=== PATIENT | male | born 1990 | race Caucasian/White ===

== ENCOUNTER 2019-07-25 05:23 | Inpatient (IN) | payer OTHER ==
--- NOTE | 2019-07-25 05:42 | PDOC ---
History of Present Illness - General Chief Complaint: Cold Symptoms Stated Complaint: FEVER Time Seen by Provider: 07/25/19 05:40 History Source: Patient - History of Present Illness Initial Comments: 07/25/19 06:42 28-year-old male complaining of fever for the last 4 days, today noted to have a rash to body. Patient reports that he traveled from [place] recently. with sneezing cold symptoms and no fever. Denies nausea, vomiting , abdominal pain, throat pain, neck pain nasal congestion, cough, chest pain, urinary symptoms. Patient reports slight frontal headache No past medical history Past History - Past Medical History Allergies/Adverse Reactions: Allergies Allergy/AdvReac Type Severity Reaction Status Date / Time No Known Allergies Allergy Verified 07/20/12 06:46 Home Medications: Ambulatory Orders Amox-Tr/K Cl [Augmentin 875Mg Tablet] 1 tab PO BID #20 tablet 07/20/12 No Home Medications 0 dose .ROUTE UTDICT 07/20/12 - Psycho Social/Smoking Cessation Hx Smoking Status: No Smoking History: Never smoked Number of Cigarettes Smoked Daily: 0 Review of Systems - Review of Systems Able to Perform ROS?: Yes Is the patient limited Frisian proficient: No Constitutional: Yes: Fever HEENTM: No: Symptoms Reported, See HPI, Eye Pain, Blurred Vision, Tearing, Recent change in vision, Double Vision, Cataracts, Ear Pain, Ocular Prothesis, Ear Discharge, Nose Pain, Nose Congestion, Tinnitus, Nose Bleeding, Hearing Loss , Throat Pain, Throat Swelling, Mouth Pain, Dental Problems, Difficulty Swallowing, Mouth Swelling, Other Respiratory: No: Symptoms reported, See HPI, Cough, Orthopnea, Shortness of Breath, SOB with Exertion, SOB at Rest, Stridor, Wheezing, Productive cough, Hemoptysis, Other Cardiac (ROS): No: Symptoms Reported, See HPI, Chest Pain, Edema, Irregular Heart Rate, Lightheadedness, Palpitations, Syncope, Chest Tightness, Other ABD/GI: No: Symptoms Reported, See HPI, Abdominal Distended, Abd. Pain w/ defecation, Blood Streaked Bowels, Constipated, Diarrhea, Difficulty Swallowing , Nausea, Poor Appetite, Poor Fluid Intake, Rectal Bleeding, Vomiting, Indigestion, Abdominal cramping, Tarry Stools, Other *Physical Exam - Vital Signs 07/25/19 06:50 Last Vital Signs Temp Pulse Resp BP Pulse Ox 101.2 F H 95 H 19 120/72 96 07/25/19 05:30 07/25/19 05:30 07/25/19 05:30 07/25/19 05:30 07/25/19 05:30 - Physical Exam General Appearance: Yes: Appropriately Dressed HEENT: positive: Pharyngeal Erythema (mild erthema no exudate no swelling) Neck: negative: Lymphadenopathy (R), Lymphadenopathy (L) Respiratory/Chest: positive: Lungs Clear, Normal Breath Sounds. negative: Chest Tender Cardiovascular: positive: Tachycardia Gastrointestinal/Abdominal: positive: Normal Bowel Sounds, Soft. negative: Tender Musculoskeletal: positive: Normal Inspection Extremity: positive: Normal Capillary Refill, Normal Inspection, Normal Range of Motion Integumentary: positive: Normal Color, Dry, Warm, Other (maculopapular rash to body nonpruritic) Neurologic: positive: pastry artist II-XII NML intact, Fully Oriented, Alert, Normal Mood/ Affect, Normal Response ED Treatment Course - LABORATORY CBC & Chemistry Diagram: 07/27/19 06:20 07/27/19 06:20 ED Progress Note - Progress Note Progress Note: 07/25/19 06:51 A: fever r/o sepsis P: labs ches xray influenza strep Medical Decision Making - Medical Decision Making patient signed out to nathaly steiner Discharge - Discharge Information Problems reviewed: Yes Clinical Impression/Diagnosis: Neutropenic fever, Thrombocytopenia, Transaminitis Condition: Fair - Admission Yes - Follow up/Referral - Patient Discharge Instructions - Post Discharge Activity
--- NOTE | 2019-07-25 05:45 | PDOC ---
ED Treatment Course - LABORATORY CBC & Chemistry Diagram: 07/25/19 19:00 07/25/19 06:57 Medical Decision Making - Medical Decision Making 07/25/19 05:45 Patient seen by the advanced practice provider under my direct supervision. Ancillary testing reviewed as necessary. I agree with plan as outlined by the advanced practice provider. Discharge - Discharge Information Problems reviewed: Yes Clinical Impression/Diagnosis: Neutropenic fever, Thrombocytopenia, Transaminitis Condition: Fair Disposition: HOME - Follow up/Referral - Patient Discharge Instructions - Post Discharge Activity
[2019-07-25 05:52] VITALS: BMI 28.1
[2019-07-25] MEDS ORDERED: SODIUM CHLORIDE 3,062 ML IV ONE (06:03)
[2019-07-25] MEDS ORDERED: ACETAMINOPHEN 1000 MG/100 ML VIAL (NON FORMULARY) IVPB ONE ×2 (06:38→08:46)
[2019-07-25] MEDS ORDERED: ACETAMINOPHEN INJECTION 100 ML IVPB ONE (07:13)
--- NOTE | 2019-07-25 07:15 | PDOC ---
*Physical Exam - Vital Signs Last Vital Signs Temp Pulse Resp BP Pulse Ox 99.6 F 80 20 115/68 96 07/25/19 07:56 07/25/19 07:56 07/25/19 07:56 07/25/19 07:56 07/25/19 07:56 <JunoAdan - Last Filed: 07/25/19 10:35> - Vital Signs Last Vital Signs Temp Pulse Resp BP Pulse Ox 101.2 F H 95 H 19 120/72 96 07/25/19 05:30 07/25/19 05:30 07/25/19 05:30 07/25/19 05:30 07/25/19 05:30 - Physical Exam General Appearance: Yes: Nourished, Appropriately Dressed. No: Apparent Distress Respiratory/Chest: positive: Lungs Clear, Normal Breath Sounds. negative: Respiratory Distress, Accessory Muscle Use, Rales, Rhonchi, Stridor, Wheezing Cardiovascular: positive: Regular Rhythm, Regular Rate, S1, S2 (present). negative: Murmur Integumentary: positive: Dry, Warm, Rash (Maculopapular rash to neck, trunk, arms and legs.) Neurologic: positive: Fully Oriented, Alert, Normal Mood/Affect, Normal Response , Motor Strength 5/5 <Chel Warner - Last Filed: 07/25/19 16:54> ED Treatment Course - LABORATORY CBC & Chemistry Diagram: 07/25/19 06:57 07/25/19 06:57 - ADDITIONAL ORDERS Additional order review: Laboratory Results 07/25/19 07/25/19 07/25/19 06:57 06:57 06:57 PT with INR INR PTT (Actin FS) VBG pH 7.40 POC VBG pCO2 46.1 POC VBG pO2 < 49 H VBG HCO3 27.9 VBG O2 Sat (Margarito) 63.0 L VBG Base Excess 2.9 H Sodium 136 Potassium 3.9 Chloride 100 Carbon Dioxide 28 Anion Gap 7 L BUN 9.1 Creatinine 0.9 Est GFR (CKD-EPI)AfAm 134.24 Est GFR (CKD-EPI)NonAf 115.82 Random Glucose 90 Lactic Acid 1.2 Calcium 8.3 L Total Bilirubin 0.4 AST 117 H ALT 125 H Alkaline Phosphatase 42 L Troponin I Total Protein 6.9 Albumin 3.7 07/25/19 07/25/19 06:57 06:57 PT with INR 13.40 H INR 1.13 H PTT (Actin FS) 39.7 H VBG pH POC VBG pCO2 POC VBG pO2 VBG HCO3 VBG O2 Sat (Margarito) VBG Base Excess Sodium Potassium Chloride Carbon Dioxide Anion Gap BUN Creatinine Est GFR (CKD-EPI)AfAm Est GFR (CKD-EPI)NonAf Random Glucose Lactic Acid Calcium Total Bilirubin AST ALT Alkaline Phosphatase Troponin I < 0.02 Total Protein Albumin 07/25/19 06:57 RBC 5.20 MCV 88.0 MCHC 33.8 RDW 13.6 MPV 9.1 Neutrophils % 47.6 D Lymphocytes % 36.1 D Monocytes % 12.3 H Eosinophils % 3.5 D Basophils % 0.5 - Medications Given in the ED: ED Medications Discontinued Medications Generic Name Dose Route Start Last Admin Trade Name Freq PRN Reason Stop Dose Admin Acetaminophen 1,000 mg 07/25/19 06:38 07/25/19 07:16 Ofirmev Injection - IVPB 07/25/19 06:39 1,000 mg ONCE ONE Administration Acetaminophen 1,000 mg 07/25/19 08:46 07/25/19 09:08 Ofirmev Injection - IVPB 07/25/19 08:47 Not Given ONCE ONE Sodium Chloride 3,062 mls @ 1,531 mls/hr 07/25/19 06:03 07/25/19 07:11 Normal Saline - 30 ml/kg infuse over 2 hr (3062 ml) 07/25/19 08:02 1,531 mls/hr IV Administration ONCE ONE Cefepime HCl 1 gm in 50 mls @ 100 mls/hr 07/25/19 08:18 07/25/19 08:40 Maxipime 1 Gm Premix Ivpb IVPB 07/25/19 08:47 100 mls/hr ONCE ONE Administration Vancomycin HCl 1,000 mg 07/25/19 08:18 07/25/19 09:15 Vancomycin (Pre-Docked) IVPB 07/25/19 08:19 1,000 mg ONCE ONE Administration Protocol <Adan Fraire - Last Filed: 07/25/19 10:35> - LABORATORY CBC & Chemistry Diagram: 07/25/19 13:48 07/25/19 06:57 <Chel Warner - Last Filed: 07/25/19 16:54> Medical Decision Making - Medical Decision Making 07/25/19 08:45 Pt presents for 5 day of fever s/p travel to [place] last week with his . Fever started 4 days ago, rash started yesterday. Pt with leukopenia to 0.9 WBC count and thrombocytopenic to 56. Given rash and fever with associated headache will perform LP to rule out meningitis DDx: meningitis, new HIV infection, Dengue fever, [place], leukemia Broad-spectrum antibiotics ordered Plan to admit; will go to hospitalist group. No PCP. 07/25/19 11:[address] Mayes placed Pending results of LP 07/25/19 12:[address] Mayes. HIV negative Pt with hypotension at 80 systolic 1L of LR running now 07/25/19 12:[address] Bragg; admit to Dr. Bangura med/surg Will repeat pressure. If still low will consider ICU <Chel Warner - Last Filed: 07/25/19 16:54> Discharge <Adan Fraire - Last Filed: 07/25/19 10:35> - Discharge Information Problems reviewed: Yes - Admission Yes <Chel Warner - Last Filed: 07/25/19 16:54> - Discharge Information Clinical Impression/Diagnosis: Neutropenic fever, Thrombocytopenia, Transaminitis Condition: Fair Disposition: HOME Procedures - Lumbar Puncture Indication: Meningitis, Fever CT Scan: Yes Betadine Prep: Yes Position: Right lateral decubitus Site: L3-L4 Local Anesthesia: 1% Lidocaine with epi Volume(ml): 2 Lumbar Puncture Kit: Adult Needle Size(gauge): 23 Opening Pressure(mmHg): 25 Traumatic Tap: No Tubes Obtained: 4 Clear Fluid: Yes Complications: No Progress: 07/25/19 10:37 patient placed in right lateral decub position L3-L4 site marked patient prepped under sterile conditions beta-dine prep approx 2cc local anesthetic used spinal catheter introduced; opening pressure of 25 measured; 4 tubes of clear csf obtained approx 3mL each spinal catheter removed, covered, and dressed patient tolerated procedure well with no immediate post-procedure complaints. <Adan Fraire - Last Filed: 07/25/19 10:35>
[2019-07-25 07:34] LABS: VENOUS PC02 46.1 mmHg (38-52)
[2019-07-25 07:44] LABS: VENOUS PO2 < 49 mmHg (28-48)
[2019-07-25 07:59] LABS: INR 1.13 (0.83-1.09); PROTHROMBIN TIME (PATIENT) 13.4 SEC (9.7-13.0)
[2019-07-25 08:02] LABS: ACTIVATED PTT 39.7 SECONDS (25.2-36.5)
[2019-07-25 08:03] LABS: ALBUMIN 3.7 g/dl (3.4-5.0); BILIRUBIN,TOTAL 0.4 mg/dL (0.2-1); BLOOD UREA NITROGEN 9.1 mg/dL (7-18); CALCIUM 8.3 mg/dL (8.5-10.1); CREATININE 0.9 mg/dL (0.55-1.3); POTASSIUM 3.9 mmol/L (3.5-5.1); TOT PROT 6.9 g/dl (6.4-8.2)
[2019-07-25 08:10] LABS: BASO % 0.5 % (0-2.0); EOS % 3.5 % (0-4.5); HEMATOCRIT 45.8 % (35.4-49); HEMOGLOBIN 15.5 GM/dL (11.7-16.9); LYMPH % 36.1 % (8-40); MCH 29.8 pg (25.7-33.7); MCHC 33.8 g/dl (32.0-35.9); MEAN PLT VOLUME 9.1 fl (7.5-11.1); MONO % 12.3 % (3.8-10.2); NEUT % 47.6 % (42.8-82.8); PLATELET COUNT 56 K/MM3 (134-434); RDW 13.6 % (11.9-15.9)
[2019-07-25 08:17] LABS: WHITE BLOOD COUNT 0.9 K/mm3 (4.0-10.0)
[2019-07-25] MEDS ORDERED: VANCOMYCIN 1 GM in D5W (PRE-DOCKED) 1,000 MG/250 ML IVPB ONE (08:18)
[2019-07-25] MEDS ORDERED: CEFEPIME HCL/D5W 1 GM/50 ML BAG IVPB ONE (08:18)
[2019-07-25] MEDS ORDERED: CEFEPIME 1 GM/100 ML BAG IVPB ONE (08:26)
[2019-07-25] MEDS ORDERED: VANCOMYCIN 1 GRAM (PRE-DOCKED) 1,000 MG/250 ML BAG IVPB ONE (09:09)
--- NOTE | 2019-07-25 10:14 | EKG ---
Test Reason : Blood Pressure : / mmHG Vent. Rate : 082 BPM Atrial Rate : 082 BPM P-R Int : 160 ms QRS Dur : 096 ms QT Int : 380 ms P-R-T Axes : 072 005 039 degrees QTc Int : 443 ms NORMAL SINUS RHYTHM NORMAL ECG NO PREVIOUS ECGS AVAILABLE Confirmed by Marv Ruiz MD ([id number]) on 07/25/2019 10:14:23 AM Referred By: Confirmed By:Marv Ruiz MD
[2019-07-25 10:25] LABS: ANISOCYTOSIS 0; MACROCYTOSIS 0; PLATELET ESTIMATE DECREASED
[2019-07-25 10:41] LABS: EPI CELLS 1.8 /HPF (0-5/HPF); HYALINE CASTS 6 /lpf (0-8); URINE APPEARANCE CLEAR; URINE BACTERIA 1.7 /hpf (NEGATIVE); URINE BILIRUBIN NEGATIVE (NEGATIVE); URINE COLOR YELLOW; URINE GLUCOSE (UA) NEGATIVE (NEGATIVE); URINE KETONE 1+ (NEGATIVE); URINE LEUK ESTERASE NEGATIVE (NEGATIVE); URINE NITRITE NEGATIVE (NEGATIVE); URINE PROTEIN 1+ (NEGATIVE); URINE RBC 0 /hpf (0-4); URINE WBC 1 /hpf (0-5)
[2019-07-25] MEDS ORDERED: LACTATED RINGERS SOLUTION 1,000 ML/1,000 ML INFUS.BAG IV ONE (11:51)
[2019-07-25 12:24] LABS: CSF APPEARANCE CLEAR; CSF COLOR COLORLESS; CSF WBC 2
--- NOTE | 2019-07-25 13:01 | PN ---
Teaching Attending Note Name of Resident: Gerber Bragg ATTENDING PHYSICIAN STATEMENT I saw and evaluated the patient. I reviewed the resident's note and discussed the case with the resident. I agree with the resident's findings and plan as documented. SUBJECTIVE: Patient is a 28 year old male with no significant PMHx presents with fever and malaise that has been going on for 4 days, Patient was in for a week prior coming to the hospital. Came to the Hospital since was having fever all day long but Tylenol was helping. He admits recent travel to [place] ( 07/13- 07/20) where he swam in beach, ate raw shrimp, and admits to mosquito bites. He denies chest pain, palpitations, abdominal pain, vomiting, diarrhea, melena, hematochezia, hematemesis, any fall, trauma or loss of consciousness. Vital Signs Temperature 99.6 F 07/25/19 07:56 Pulse Rate 80 07/25/19 07:56 Respiratory Rate 20 07/25/19 07:56 Blood Pressure 115/68 07/25/19 07:56 O2 Sat by Pulse Oximetry (%) 96 07/25/19 07:56 GENERAL: The patient is awake, alert, and fully oriented, feels warm. HEAD: Normal with no signs of trauma. EYES: PERRL, extraocular movements intact, conjunctiva mildly icteric, ENT: Ears normal, oropharynx clear without exudates, moist mucous membranes. NECK: Trachea midline, full range of motion, supple. LUNGS: Breath sounds equal, clear to auscultation bilaterally, no wheezes, no crackles, no accessory muscle use. HEART: Regular rate and rhythm, S1, S2 without murmur, rub or gallop. ABDOMEN: Soft, nontender, nondistended, normoactive bowel sounds, no guarding, no rebound, no hepatosplenomegaly, no masses. EXTREMITIES: 2+ pulses, warm, well-perfused, no edema. multiple mosquito bites NEUROLOGICAL: Cranial nerves II through XII grossly intact. Normal speech, gait not observed. PSYCH: Normal mood, normal affect. SKIN: Warm, dry, normal turgor, no rashes or lesions noted CBCD WBC 0.9 K/mm3 (4.0-10.0) L* 07/25/19 06:57 RBC 5.20 M/mm3 (4.00-5.60) 07/25/19 06:57 Hgb 15.5 GM/dL (11.7-16.9) 07/25/19 06:57 Hct 45.8 % (35.4-49) 07/25/19 06:57 MCV 88.0 fl (80-96) 07/25/19 06:57 MCHC 33.8 g/dl (32.0-35.9) 07/25/19 06:57 RDW 13.6 % (11.9-15.9) 07/25/19 06:57 Plt Count 56 K/MM3 (134-434) L D 07/25/19 06:57 MPV 9.1 fl (7.5-11.1) 07/25/19 06:57 CMP Sodium 136 mmol/L (136-145) 07/25/19 06:57 Potassium 3.9 mmol/L (3.5-5.1) 07/25/19 06:57 Chloride 100 mmol/L (98-107) 07/25/19 06:57 Carbon Dioxide 28 mmol/L (21-32) 07/25/19 06:57 Anion Gap 7 MMOL/L (8-16) L 07/25/19 06:57 BUN 9.1 mg/dL (7-18) 07/25/19 06:57 Creatinine 0.9 mg/dL (0.55-1.3) 07/25/19 06:57 Random Glucose 90 mg/dL (74-106) 07/25/19 06:57 Calcium 8.3 mg/dL (8.5-10.1) L 07/25/19 06:57 Total Bilirubin 0.4 mg/dL (0.2-1) 07/25/19 06:57 AST 117 U/L (15-37) H 07/25/19 06:57 ALT 125 U/L (13-61) H 07/25/19 06:57 Alkaline Phosphatase 42 U/L (45-117) L 07/25/19 06:57 Total Protein 6.9 g/dl (6.4-8.2) 07/25/19 06:57 Albumin 3.7 g/dl (3.4-5.0) 07/25/19 06:57 CARDIAC ENZYMES Troponin I < 0.02 ng/ml (0.00-0.05) 07/25/19 06:57 Home Medications Medication Instructions Recorded Amox-Tr/K Cl [Augmentin 875Mg 1 tab PO BID #20 tablet 07/20/12 Tablet] No Home Medications 0 dose .ROUTE UTDICT 07/20/12 Microbiology Laboratory Tests 07/25/19 07/25/19 07/25/19 06:10 06:57 09:15 WBC 0.9 L* Plt Count 56 L D Dengue Fever IgG Ab Dengue Fever IgM Ab EBV EA IgG Ab Interp HSV I DNA Quant (PCR) HSV II DNA Quant (PCR) HIV 1&2 Antibody Screen Negative HIV P24 Antigen Negative Infectious Darke Assay Group A Strep Rapid Negative 07/25/19 07/25/19 07/25/19 10:46 10:46 12:00 WBC Plt Count Dengue Fever IgG Ab Dengue Fever IgM Ab EBV EA IgG Ab Interp Pending HSV I DNA Quant (PCR) Pending HSV II DNA Quant (PCR) Pending HIV 1&2 Antibody Screen HIV P24 Antigen Infectious Darke Assay Pending Group A Strep Rapid 07/25/19 12:00 WBC Plt Count Dengue Fever IgG Ab Pending Dengue Fever IgM Ab Pending EBV EA IgG Ab Interp HSV I DNA Quant (PCR) HSV II DNA Quant (PCR) HIV 1&2 Antibody Screen HIV P24 Antigen Infectious Darke Assay Group A Strep Rapid Assessment and plan: Patient is a 28 year old male with no significant PMHx presents with complaint of fever and malaise with recent travel to [facility]. # Neutropenic fever unknown origin r/o Dengue fever, chinchikungunya fever, Zikka fever, Plasmodium studies, Dieudonne Baptiste virus, Herpes Simplex virus, HIV, serology. follow CSF culture/bld cx and ucx , Neutropenic precautions, neutropenic diet, isolation. ID recommendations (Dr. Mayes) appreciated Hematology recommendations ,Dr. Constantino appreciated. # Acute Transaminitis: hepatitis panel, Us of abdomen to r/o hepatocellar dz , will check tylenol level #Thrombocytopenia; will get head ct for possible bleed. DVT px: SCDs since thrombocytopenic FOLLOw head ct tylenol level ferritin haptoglobin retic count r/o hemolysis LP is negative so far/hiv is neg so far
--- NOTE | 2019-07-25 13:29 | HP ---
CHIEF COMPLAINT: fever, malaise PCP: HISTORY OF PRESENT ILLNESS: Patient is a 28 year old male with no reported past medical history presents with complaint of fever and malaise. He endorses that symptoms began four days ago, without obvious precipitating factor. Subjective fever, became associated with a non-pruritic rash patient noted along his chest and ventral aspect of forearms. He denies prior episodes of similar symptoms. He admits recent travel to [place] (07/13- 07/20) where he swam in beach, ate raw shrimp, and admits few bug bites. He denies chest pain, palpitations, abdominal pain, vomiting, diarrhea, melena, hematochezia, hematemesis, any fall, trauma or loss of consciousness. ER course was notable for: (1) WBC 0.9, Platelets 56. Febrile to 101.2F (2) Chest radiograph reveals no acute infiltrates (3) Lumbar puncture Recent Travel: [place] PAST MEDICAL HISTORY: denies PAST SURGICAL HISTORY: denies Social History: Lives in [place], [place] with his , currently visiting family. Works as senior ui software engineer. Sexually active only with his , does not use contraceptives. Denies prior diagnosis of STI. Smoking: denies smoking cigarettes Alcohol: admits 2-3 beers per week. Drugs: denies illicit drug use Allergies No Known Allergies Allergy (Verified 07/20/12 06:46) HOME MEDICATIONS: Home Medications Medication Instructions Recorded No Home Medications 0 dose .ROUTE UTDICT 07/20/12 REVIEW OF SYSTEMS CONSTITUTIONAL: Admits: fever, chills, generalized weakness, malaise, loss of appetite. HEENT: Absent: rhinorrhea, nasal congestion, throat pain, throat swelling, difficulty swallowing, mouth swelling, ear pain, eye pain, visual changes CARDIOVASCULAR: Absent: chest pain, syncope, palpitations, irregular heart rate, lightheadedness , peripheral edema RESPIRATORY: Absent: cough, shortness of breath, dyspnea with exertion, orthopnea, wheezing, stridor, hemoptysis GASTROINTESTINAL: Absent: abdominal pain, abdominal distension, nausea, vomiting, diarrhea, constipation, melena, hematochezia GENITOURINARY: Absent: dysuria, frequency, urgency, hesitancy, hematuria, flank pain, genital pain MUSCULOSKELETAL: Absent: myalgia, arthralgia, joint swelling, back pain, neck pain SKIN: Absent: rash, itching, pallor HEMATOLOGIC/IMMUNOLOGIC: Absent: easy bleeding, easy bruising, lymphadenopathy, frequent infections ENDOCRINE: Absent: unexplained weight gain, unexplained weight loss, heat intolerance, cold intolerance NEUROLOGIC: Absent: headache, focal weakness or paresthesias, dizziness, unsteady gait, seizure, mental status changes, bladder or bowel incontinence PSYCHIATRIC: Absent: anxiety, depression, suicidal or homicidal ideation, hallucinations. PHYSICAL EXAMINATION Vital Signs - 24 hr 07/25/19 07/25/19 07/25/19 05:30 07:56 11:45 Temperature 101.2 F H 99.6 F Pulse Rate 95 H Pulse Rate [ 80 80 Left Radial] Respiratory 19 20 20 Rate Blood Pressure 120/72 Blood Pressure 115/68 94/57 L [Left Arm] O2 Sat by Pulse 96 96 96 Oximetry (%) GENERAL: The patient is awake, alert, and fully oriented, in no acute distress. HEAD: Normocephalic, atraumatic. EYES: PERRL, extraocular movements intact, sclera anicteric, conjunctiva clear. ENT: Oropharynx clear, without erythema or exudates. Moist mucous membranes. NECK: Trachea midline, full range of motion. Supple without lymphadenopathy. LUNGS: Breath sounds equal, clear to auscultation bilaterally, no wheezes, no crackles. No accessory muscle use. HEART: Regular rate and rhythm, S1, S2 without murmur, rub or gallop. ABDOMEN: Soft, nondistended, nontender to light and deep palpation x4 quadrants , no rebound tenderness, no guarding. Normoactive bowel sounds x4 quadrants. no hepatosplenomegaly, no masses. EXTREMITIES: 2+ radial, dorsalis pedis pulses bilaterally. Warm, well-perfused. No lower extremity edema bilaterally. NEUROLOGICAL: Cranial nerves II through XII grossly intact. Normal speech. No gross focal deficits. PSYCH: Normal mood, normal affect upon my encounter. SKIN: Warm, dry. Lacy reticular rash along chest, and back that blanches with palpation. Petichial rash along bilateral lower legs. Laboratory Results - last 24 hr 07/25/19 07/25/19 07/25/19 06:10 06:10 06:57 WBC RBC Hgb Hct MCV MCH MCHC RDW Plt Count MPV Absolute Neuts (auto) Neutrophils % Neutrophils % (Manual) Band Neutrophils % Lymphocytes % Lymphocytes % (Manual) Monocytes % Monocytes % (Manual) Eosinophils % Eosinophils % (Manual) Basophils % Basophils % (Manual) Myelocytes % (Man) Promyelocytes % (Man) Blast Cells % (Manual) Nucleated RBC % Metamyelocytes Hypochromia Platelet Estimate Platelet Comment Polychromasia Poikilocytosis Anisocytosis Microcytosis Macrocytosis PT with INR 13.40 H INR 1.13 H PTT (Actin FS) 39.7 H VBG pH POC VBG pCO2 POC VBG pO2 VBG HCO3 VBG O2 Sat (Margarito) VBG Base Excess Sodium Potassium Chloride Carbon Dioxide Anion Gap BUN Creatinine Est GFR (CKD-EPI)AfAm Est GFR (CKD-EPI)NonAf Random Glucose Lactic Acid Calcium Total Bilirubin AST ALT Alkaline Phosphatase Troponin I Total Protein Albumin Urine Color Urine Appearance Urine pH Ur Specific [place] Urine Protein Urine Glucose (UA) Urine Ketones Urine Blood Urine Nitrite Urine Bilirubin Urine Urobilinogen Ur Leukocyte Esterase Urine WBC (Auto) Urine RBC (Auto) Urine Casts (Auto) U Epithel Cells (Auto) Urine Bacteria (Auto) CSF Appearance CSF Color CSF WBC CSF RBC CSF Neutrophils CSF Lymphocytes CSF Eosinophils CSF Basophils CSF Macrophages CSF Plasma Cells CSF Diff Comment CSF Comment HIV 1&2 Antibody Screen HIV P24 Antigen Influenza A (Rapid) Negative Influenza B (Rapid) Negative Group A Strep Rapid Negative 07/25/19 07/25/19 07/25/19 06:57 06:57 06:57 WBC 0.9 L* RBC 5.20 Hgb 15.5 Hct 45.8 MCV 88.0 MCH 29.8 MCHC 33.8 RDW 13.6 Plt Count 56 L D MPV 9.1 Absolute Neuts (auto) 0.4 L Neutrophils % 47.6 D Neutrophils % (Manual) 40.0 L Band Neutrophils % 9.0 Lymphocytes % 36.1 D Lymphocytes % (Manual) 30.0 Monocytes % 12.3 H Monocytes % (Manual) 7 Eosinophils % 3.5 D Eosinophils % (Manual) 2.0 Basophils % 0.5 Basophils % (Manual) 0.0 Myelocytes % (Man) 0 Promyelocytes % (Man) 0 Blast Cells % (Manual) 0 Nucleated RBC % 0 Metamyelocytes 0 Hypochromia 0 Platelet Estimate Decreased Platelet Comment Present Polychromasia 0 Poikilocytosis 0 Anisocytosis 0 Microcytosis 0 Macrocytosis 0 PT with INR INR PTT (Actin FS) VBG pH POC VBG pCO2 POC VBG pO2 VBG HCO3 VBG O2 Sat (Margarito) VBG Base Excess Sodium 136 Potassium 3.9 Chloride 100 Carbon Dioxide 28 Anion Gap 7 L BUN 9.1 Creatinine 0.9 Est GFR (CKD-EPI)AfAm 134.24 Est GFR (CKD-EPI)NonAf 115.82 Random Glucose 90 Lactic Acid Calcium 8.3 L Total Bilirubin 0.4 AST 117 H ALT 125 H Alkaline Phosphatase 42 L Troponin I < 0.02 Total Protein 6.9 Albumin 3.7 Urine Color Urine Appearance Urine pH Ur Specific [place] Urine Protein Urine Glucose (UA) Urine Ketones Urine Blood Urine Nitrite Urine Bilirubin Urine Urobilinogen Ur Leukocyte Esterase Urine WBC (Auto) Urine RBC (Auto) Urine Casts (Auto) U Epithel Cells (Auto) Urine Bacteria (Auto) CSF Appearance CSF Color CSF WBC CSF RBC CSF Neutrophils CSF Lymphocytes CSF Eosinophils CSF Basophils CSF Macrophages CSF Plasma Cells CSF Diff Comment CSF Comment HIV 1&2 Antibody Screen HIV P24 Antigen Influenza A (Rapid) Influenza B (Rapid) Group A Strep Rapid 07/25/19 07/25/19 07/25/19 06:57 06:57 09:00 WBC RBC Hgb Hct MCV MCH MCHC RDW Plt Count MPV Absolute Neuts (auto) Neutrophils % Neutrophils % (Manual) Band Neutrophils % Lymphocytes % Lymphocytes % (Manual) Monocytes % Monocytes % (Manual) Eosinophils % Eosinophils % (Manual) Basophils % Basophils % (Manual) Myelocytes % (Man) Promyelocytes % (Man) Blast Cells % (Manual) Nucleated RBC % Metamyelocytes Hypochromia Platelet Estimate Platelet Comment Polychromasia Poikilocytosis Anisocytosis Microcytosis Macrocytosis PT with INR INR PTT (Actin FS) VBG pH 7.40 POC VBG pCO2 46.1 POC VBG pO2 < 49 H VBG HCO3 27.9 VBG O2 Sat (Margarito) 63.0 L VBG Base Excess 2.9 H Sodium Potassium Chloride Carbon Dioxide Anion Gap BUN Creatinine Est GFR (CKD-EPI)AfAm Est GFR (CKD-EPI)NonAf Random Glucose Lactic Acid 1.2 Calcium Total Bilirubin AST ALT Alkaline Phosphatase Troponin I Total Protein Albumin Urine Color Yellow Urine Appearance Clear Urine pH 7.0 Ur Specific [place] 1.031 Urine Protein 1+ H Urine Glucose (UA) Negative Urine Ketones 1+ H Urine Blood Negative Urine Nitrite Negative Urine Bilirubin Negative Urine Urobilinogen 1.0 Ur Leukocyte Esterase Negative Urine WBC (Auto) 1 Urine RBC (Auto) 0 Urine Casts (Auto) 6 U Epithel Cells (Auto) 1.8 Urine Bacteria (Auto) 1.7 CSF Appearance CSF Color CSF WBC CSF RBC CSF Neutrophils CSF Lymphocytes CSF Eosinophils CSF Basophils CSF Macrophages CSF Plasma Cells CSF Diff Comment CSF Comment HIV 1&2 Antibody Screen HIV P24 Antigen Influenza A (Rapid) Influenza B (Rapid) Group A Strep Rapid 07/25/19 07/25/19 09:15 10:46 WBC RBC Hgb Hct MCV MCH MCHC RDW Plt Count MPV Absolute Neuts (auto) Neutrophils % Neutrophils % (Manual) Band Neutrophils % Lymphocytes % Lymphocytes % (Manual) Monocytes % Monocytes % (Manual) Eosinophils % Eosinophils % (Manual) Basophils % Basophils % (Manual) Myelocytes % (Man) Promyelocytes % (Man) Blast Cells % (Manual) Nucleated RBC % Metamyelocytes Hypochromia Platelet Estimate Platelet Comment Polychromasia Poikilocytosis Anisocytosis Microcytosis Macrocytosis PT with INR INR PTT (Actin FS) VBG pH POC VBG pCO2 POC VBG pO2 VBG HCO3 VBG O2 Sat (Margarito) VBG Base Excess Sodium Potassium Chloride Carbon Dioxide Anion Gap BUN Creatinine Est GFR (CKD-EPI)AfAm Est GFR (CKD-EPI)NonAf Random Glucose Lactic Acid Calcium Total Bilirubin AST ALT Alkaline Phosphatase Troponin I Total Protein Albumin Urine Color Urine Appearance Urine pH Ur Specific [place] Urine Protein Urine Glucose (UA) Urine Ketones Urine Blood Urine Nitrite Urine Bilirubin Urine Urobilinogen Ur Leukocyte Esterase Urine WBC (Auto) Urine RBC (Auto) Urine Casts (Auto) U Epithel Cells (Auto) Urine Bacteria (Auto) CSF Appearance Clear CSF Color Colorless CSF WBC 2 CSF RBC None seen CSF Neutrophils No Result Required. CSF Lymphocytes No Result Required. CSF Eosinophils No Result Required. CSF Basophils No Result Required. CSF Macrophages No Result Required. CSF Plasma Cells No Result Required. CSF Diff Comment No Result Required. CSF Comment No Result Required. HIV 1&2 Antibody Screen Negative HIV P24 Antigen Negative Influenza A (Rapid) Influenza B (Rapid) Group A Strep Rapid ASSESSMENT/PLAN: Patient is a 28 year old male with no reported past medical history presents with complaint of fever and malaise. Neutropenic fever -Unclear etiology of leukopenia, however likely infectious. Patient received Vancomcin, Cefepime in ED. -Will repeat CBC STAT -Follow lumbar puncture CSF culture -Follow blood cultures, urine cultures -Follow Dieudonne Baptiste virus, Herpes Simplex virus, HIV, serology -Dengue fever, chinchikungunya fever, Zikka fever, Plasmodium studies -Neutropenic precautions -ID recommendations (Dr. Mayes) appreciated -Hematology recommendations (Dr. Melvin) appreciated. Transaminitis -AST 117/ ALT 125. Alk phos. 42. Total bili 0.4 -appears hepatocellular pattern of injury. May be secondary to ?Dengue fever. Follow serology -Will add on Hepatitis serology -Right upper quadrant, and left upper quadrant ultrasound to evaluate for liver pathology, and splenomegaly Thrombocytopenia -Etiology may be secondary to infection. -Trend CBC, and consider hematology evaluation. -F/U head CT to rule out intracranial hemorrhage -Hematology recommendations (Dr. Melvin) appreciated. FEN -IV normal saline at 125mL/ hour X 2 bags -Follow BMP, replete as necessary -Regular diet, neutropenic modification Prophylaxis -SCDs given thrombocytopenia Disposition -Admit to medical surgical floor. Visit type - Emergency Visit Emergency Visit: Yes ED Registration Date: 07/25/19 Care time: The patient presented to the Emergency Department on the above date and was hospitalized for further evaluation of their emergent condition. - New Patient This patient is new to me today: Yes Date on this admission: 07/25/19 - Critical Care Critical Care patient: No ATTENDING PHYSICIAN STATEMENT I saw and evaluated the patient. I reviewed the resident's note and discussed the case with the resident. I agree with the resident's findings and plan as documented. SUBJECTIVE: OBJECTIVE: ASSESSMENT AND PLAN:
[2019-07-25 14:10] LABS: EOS % 3.7 % (0-4.5); HEMATOCRIT 41.5 % (35.4-49); HEMOGLOBIN 13.9 GM/dL (11.7-16.9); LYMPH % 47.9 % (8-40); MCH 29.5 pg (25.7-33.7); MCHC 33.4 g/dl (32.0-35.9); MEAN CELL VOLUME 88.4 fl (80-96); MEAN PLT VOLUME 9.3 fl (7.5-11.1); MONO % 11.2 % (3.8-10.2); NEUT % 36.2 % (42.8-82.8); PLATELET COUNT 54 K/MM3 (134-434); RDW 13.6 % (11.9-15.9)
[2019-07-25 14:11] LABS: WHITE BLOOD COUNT 1.2 K/mm3 (4.0-10.0)
[2019-07-25] MEDS ORDERED: SODIUM CHLORIDE 1,000 ML IV SCH (14:15)
[2019-07-25 14:55] LABS: BF GLUCOSE (CSF ONLY) 64 mg/dL (40-70)
[2019-07-25 15:09] LABS: ANISOCYTOSIS 0; MACROCYTOSIS 0; PLATELET ESTIMATE DECREASED
--- NOTE | 2019-07-25 16:24 | CONSULT ---
Consultation: REQUESTING PROVIDER: primary team CONSULT REQUEST: We have been asked to medically evaluate this patient for ( Neutropenic fever). HISTORY OF PRESENT ILLNESS: Patient is a 28 year old male with no reported past medical history presents with complaint of fever and malaise. He endorses that symptoms began four days ago, without obvious precipitating factor. Subjective fever, became associated with a non-pruritic rash patient noted along his chest and ventral aspect of forearms. He denies prior episodes of similar symptoms. He admits recent travel to [place] (07/13- 07/20) where he swam in beach, ate raw shrimp, and admits few bug bites symptoms started on day of return to [facility] . He denies chest pain, palpitations, abdominal pain, vomiting, diarrhea, melena, hematochezia, hematemesis, any fall, trauma or loss of consciousness. denies any abnormal sexual activities , denies nay penile discharges or sexual transmitted disease. FHX : garnd mother with breast cancer and grandfather with urinary cancer Recent Travel: [place] PAST MEDICAL HISTORY: denies PAST SURGICAL HISTORY: denies Social History: with one kids , no other sexual activity , denies smoking , drink socially , deneis any drugs REVIEW OF SYSTEMS: CONSTITUTIONAL: Absent: fever, chills, diaphoresis, generalized weakness, malaise, loss of appetite, weight change HEENT: Absent: rhinorrhea, nasal congestion, throat pain, throat swelling, difficulty swallowing, mouth swelling, ear pain, eye pain, visual changes CARDIOVASCULAR: Absent: chest pain, syncope, palpitations, irregular heart rate, lightheadedness , peripheral edema RESPIRATORY: Absent: cough, shortness of breath, dyspnea with exertion, orthopnea, wheezing, stridor, hemoptysis GASTROINTESTINAL: Absent: abdominal pain, abdominal distension, nausea, vomiting, diarrhea, constipation, melena, hematochezia GENITOURINARY: Absent: dysuria, frequency, urgency, hesitancy, hematuria, flank pain, genital pain MUSCULOSKELETAL: Absent: myalgia, arthralgia, joint swelling, back pain, neck pain SKIN: Absent: rash, itching, pallor HEMATOLOGIC/IMMUNOLOGIC: Absent: easy bleeding, easy bruising, lymphadenopathy, frequent infections ENDOCRINE: Absent: unexplained weight gain, unexplained weight loss, heat intolerance, cold intolerance NEUROLOGIC: Absent: headache, focal weakness or paresthesias, dizziness, unsteady gait, seizure, mental status changes, bladder or bowel incontinence PSYCHIATRIC: Absent: anxiety, depression, suicidal or homicidal ideation, hallucinations. PHYSICAL EXAMINATION Vital Signs - 24 hr 07/25/19 07/25/19 07/25/19 05:30 07:56 11:45 Temperature 101.2 F H 99.6 F Pulse Rate 95 H Pulse Rate [ 80 80 Left Radial] Respiratory 19 20 20 Rate Blood Pressure 120/72 Blood Pressure 115/68 94/57 L [Left Arm] O2 Sat by Pulse 96 96 96 Oximetry (%) 07/25/19 13:40 Temperature 100.8 F H Pulse Rate Pulse Rate [ 80 Left Radial] Respiratory 20 Rate Blood Pressure Blood Pressure 108/65 [Left Arm] O2 Sat by Pulse 97 Oximetry (%) GENERAL: Awake, alert, and fully oriented, in no acute distress. HEAD: Normal with no signs of trauma. EYES: Pupils equal, round and reactive to light, extraocular movements intact, EARS, NOSE, THROAT: Moist mucous membranes. NECK: supple without lymphadenopathy, no axillary lymph nodes palpated LUNGS: Breath sounds equal, clear to auscultation bilaterally. No wheezes, and no crackles. No accessory muscle use.no breast mass or lymph node palpated HEART: Regular rate and rhythm, normal S1 and S2 without murmur, rub or gallop. ABDOMEN: Soft, nontender, not distended, normoactive bowel sounds, right inguinal small lymph node LOWER EXTREMITIES: 2+ pulses, warm, well-perfused. No calf tenderness. No peripheral edema. NEUROLOGICAL: no foical deficit . Normal speech. PSYCHIATRIC: Cooperative. SKIN: Warm, dry, normal turgor,diffuse rash on chest and back Laboratory Results - last 24 hr Active Medications Generic Name Dose Route Start Last Admin Trade Name Freq PRN Reason Stop Dose Admin Sodium Chloride 1,000 mls @ 83 mls/hr 07/25/19 14:15 Normal Saline - IV 07/27/19 02:18 ASDIR ANGELIQUE Cefepime HCl 1 gm in 50 mls @ 100 mls/hr 07/25/19 18:00 Maxipime 1 Gm Premix Ivpb IVPB Q8H-IV ANGELIQUE Protocol Vancomycin HCl 1,000 mg in 250 mls @ 166.667 mls/hr 07/25/19 20:00 Vancomycin (Pre-Docked) IVPB 07/26/19 19:59 ONCE ANGELIQUE Protocol CBC, BMP 07/25/19 13:48 07/25/19 06:57 ASSESSMENT/PLAN: # Neutropenia likely due in infection process can not R.O malignancy ANC 480 # Thrombocytoepnia plt 54 , will give one unit of monodonot plt and repeat cbc after that as pt has LP in ED . * IV fluids * Abx per ID cefipme and Vancomycine aand doxycyclin * piña cx , r.o tick disease , * R.O EBV, , cmv, zika, chikagunya, dengue, parvo, hiv per ID * flow cytometry , FISH and Cytogentic * ID consult * neutropenic precautions * trend CBC with differential daily * follow up CT A/P # transaminitis follow up US liver , trend liver enzymes , likely due to infection Dispo: We will continue to follow the patient. Thank you for this consultative opportunity. Visit type - Emergency Visit Emergency Visit: Yes ED Registration Date: 07/25/19 Care time: The patient presented to the Emergency Department on the above date and was hospitalized for further evaluation of their emergent condition. - New Patient This patient is new to me today: Yes Date on this admission: 07/25/19 - Critical Care Critical Care patient: No ATTENDING PHYSICIAN STATEMENT I saw and evaluated the patient. I reviewed the resident's note and discussed the case with the resident. I agree with the resident's findings and plan as documented. SUBJECTIVE: OBJECTIVE: ASSESSMENT AND PLAN:
--- NOTE | 2019-07-25 17:06 | PN ---
Progress Note (short form) - Note Progress Note: ID consult dictated imp/reccd 28 yo man admitted from the community fever since return from [place] on Wednesday ( Day #4) rash since yesterday no cough mild retroorbital headache no diarrhea and 5 month old sone are not sick lives in a house in [place] with his family pet dog here visiting his family alert not confused poor appetite feels better after the fluids FUO Leukopenia Thrombocytopenia abnl lfts r/o viral infection- ebv, cmv, zika, chikagunya, dengue, parvo, hiv r/o tick illness- cover for febrile neutropenia vanco/cefepime/doxycycline, ivf CK hep serology f/u cultures ultrasound is pending hematology consult pending neutropenic precautions Problem List - Problems (1) Neutropenic fever Code(s): D70.9 - NEUTROPENIA, UNSPECIFIED; R50.81 - FEVER PRESENTING WITH CONDITIONS CLASSIFIED ELSEWHERE (2) Thrombocytopenia Code(s): D69.6 - THROMBOCYTOPENIA, UNSPECIFIED (3) Transaminitis Code(s): R74.0 - NONSPEC ELEV OF LEVELS OF TRANSAMNS & LACTIC ACID DEHYDRGNSE
[2019-07-25] MEDS ORDERED: CEFEPIME HCL 2 GM VIAL (RESTRICTED TO ID) ONE (17:28)
[2019-07-25] MEDS ORDERED: DEXTROSE 5%-WATER 100 ML IVPB ONE ×2 (17:28→20:41)
--- NOTE | 2019-07-25 17:39 | CONSULT ---
Consult - text type - Consultation Consultation Note: Patient is a 28 year old male with no reported past medical history presents with complaint of fever and malaise. He endorses that symptoms began four days ago, without obvious precipitating factor. Subjective fever, became associated with a non-pruritic rash patient noted along his chest and ventral aspect of forearms. He denies prior episodes of similar symptoms. He admits recent travel to [place] (07/13- 07/20) where he swam in beach, ate raw shrimp, and admits few bug bites symptoms started on day of return to [facility] . He denies chest pain, palpitations, abdominal pain, vomiting, diarrhea, melena, hematochezia, hematemesis, any fall, trauma or loss of consciousness. Reports fever for 4 days. No cough/SOB/abdominal pain/darrhea/urinary symptoms. FHX : garnd mother with breast cancer and grandfather with genitourinary cancer Last Vital Signs Temp Pulse Resp BP Pulse Ox 100.8 F H 80 20 108/65 97 07/25/19 13:40 07/25/19 13:40 07/25/19 13:40 07/25/19 13:40 07/25/19 13:40 Cor: RSR, No murmurs, No gallops Lungs: Clear to P&A Abd: Soft, Normal bowel sounds, No organomegaly Ext:No significant edema Skin: No rashes, Integument intact Abnormal Lab Results 07/25/19 07/25/19 07/25/19 06:57 06:57 06:57 WBC 0.9 L* Plt Count 56 L D Absolute Neuts (auto) 0.4 L Neutrophils % Neutrophils % (Manual) 40.0 L Lymphocytes % Monocytes % 12.3 H PT with INR 13.40 H INR 1.13 H PTT (Actin FS) 39.7 H POC VBG pO2 VBG O2 Sat (Margarito) VBG Base Excess Anion Gap 7 L Calcium 8.3 L AST 117 H ALT 125 H Alkaline Phosphatase 42 L Urine Protein Urine Ketones 07/25/19 07/25/19 07/25/19 06:57 09:00 13:48 WBC 1.2 L* Plt Count 54 L Absolute Neuts (auto) 0.4 L Neutrophils % 36.2 L D Neutrophils % (Manual) 38.0 L Lymphocytes % 47.9 H D Monocytes % 11.2 H PT with INR INR PTT (Actin FS) POC VBG pO2 < 49 H VBG O2 Sat (Margarito) 63.0 L VBG Base Excess 2.9 H Anion Gap Calcium AST ALT Alkaline Phosphatase Urine Protein 1+ H Urine Ketones 1+ H Home Medication List Medication Instructions Recorded Confirmed Type No Home Medications 0 dose .ROUTE UTDICT 07/20/12 07/20/12 History Active Medications Generic Name Dose Route Start Last Admin Trade Name Jen PRN Reason Stop Dose Admin Vancomycin HCl 1,000 mg in 250 mls @ 166.667 mls/hr 07/25/19 20:00 Vancomycin (Pre-Docked) IVPB 07/26/19 19:59 ONCE ANGELIQUE Protocol Cefepime HCl 2 gm/ Dextrose 100 mls @ 100 mls/hr 07/25/19 18:00 IVPB Q8H-IV ANGELIQUE Protocol Doxycycline Hyclate 100 mg/ 100 mls @ 100 mls/hr 07/25/19 22:00 Dextrose IVPB BID ANGELIQUE Sodium Chloride 1,000 mls @ 125 mls/hr 07/25/19 17:25 Normal Saline - IV 07/26/19 22:14 ASDIR ANGELIQUE ASSESSMENT/PLAN: 28 year old male with no reported past medical history presents with complaint of fever and malaise. He endorses that symptoms began four days ago, without obvious precipitating factor. Subjective fever, became associated with a non- pruritic rash patient noted along his chest and ventral aspect of forearms. He denies prior episodes of similar symptoms. He admits recent travel to [place] (07/13- 07/20) where he swam in beach, ate raw shrimp, and admits few bug bites symptoms started on day of return to [facility] . Reports fever for 4 days. No cough/SOB/abdominal pain/darrhea/urinary symptoms. Pancytopenia /leukopenia /abnormal LFTs/skin rash/fevers/myalgias-- ? viral syndrome check LDH/PT/PTT check flow IV fluids s/p LP transfusing 2 units monodonor platelets given thrombocytopenia
[2019-07-25] MEDS ORDERED: CEFEPIME HCL/D5W 1 GM/50 ML BAG IVPB SCH (18:00)
[2019-07-25 19:49] LABS: HEMATOCRIT 42.3 % (35.4-49); HEMOGLOBIN 14.2 GM/dL (11.7-16.9); MCH 29.5 pg (25.7-33.7); MCHC 33.6 g/dl (32.0-35.9); MEAN PLT VOLUME 9.4 fl (7.5-11.1); PLATELET COUNT 50 K/MM3 (134-434); RBC 4.81 M/mm3 (4.00-5.60); RDW 13.6 % (11.9-15.9)
[2019-07-25 19:59] LABS: INR 1.19 (0.83-1.09); PROTHROMBIN TIME (PATIENT) 14.1 SEC (9.7-13.0)
[2019-07-25] MEDS ORDERED: VANCOMYCIN 1 GRAM (PRE-DOCKED) 1,000 MG/250 ML BAG IVPB SCH (20:00)
[2019-07-25 20:02] LABS: ACTIVATED PTT 33.2 SECONDS (25.2-36.5)
[2019-07-25 20:05] LABS: WHITE BLOOD COUNT 1.2 K/mm3 (4.0-10.0)
[2019-07-25 20:06] LABS: ADD RBC MORPHOLOGY YES
[2019-07-25 20:19] LABS: URIC ACID 2.2 mg/dL (2.6-7.2)
[2019-07-25] MEDS ORDERED: DOXYCYCLINE HYCLATE 100 MG VIAL ONE (20:41)
[2019-07-25] MEDS: SODIUM CHLORIDE 1,000 ML IV SCH (21:23)
[2019-07-25] MEDS: CEFEPIME 2 GM in DEXTROSE 5%-WATER 100 ML IVPB SCH (21:23)
[2019-07-25] MEDS: DOXYCYCLINE INJECTION 100 MG in DEXTROSE 5%-WATER 100 ML IVPB SCH (21:24)
[2019-07-25 22:25] LABS: PLATELET ESTIMATE MOD DECREASED
[2019-07-26] MEDS ORDERED: DEXTROSE 5%-WATER 100 ML IVPB ONE ×5 (01:55→20:07)
[2019-07-26] MEDS ORDERED: CEFEPIME HCL 2 GM VIAL (RESTRICTED TO ID) ONE ×3 (01:56→16:32)
[2019-07-26] MEDS ORDERED: PT OWN MED DRAWER 7, Y5N ONE (01:56)
[2019-07-26] MEDS: CEFEPIME 2 GM in DEXTROSE 5%-WATER 100 ML IVPB SCH ×3 (01:59→17:20)
[2019-07-26 07:13] LABS: INR 1.12 (0.83-1.09); PROTHROMBIN TIME (PATIENT) 13.2 SEC (9.7-13.0)
[2019-07-26 07:16] LABS: ACTIVATED PTT 30.7 SECONDS (25.2-36.5)
[2019-07-26 07:24] LABS: BASO % 1.2 % (0-2.0); EOS % 8.6 % (0-4.5); HEMATOCRIT 41.6 % (35.4-49); LYMPH % 44.9 % (8-40); MCH 29.5 pg (25.7-33.7); MCHC 33.8 g/dl (32.0-35.9); MEAN CELL VOLUME 87.4 fl (80-96); MONO % 19.1 % (3.8-10.2); NEUT % 26.2 % (42.8-82.8); PLATELET COUNT 84 K/MM3 (134-434); RBC 4.76 M/mm3 (4.00-5.60); RDW 13.6 % (11.9-15.9)
[2019-07-26 07:32] LABS: WHITE BLOOD COUNT 1.5 K/mm3 (4.0-10.0)
[2019-07-26 07:42] LABS: ALBUMIN 3.4 g/dl (3.4-5.0); BILIRUBIN,TOTAL 0.5 mg/dL (0.2-1); BLOOD UREA NITROGEN 6.3 mg/dL (7-18); CALCIUM 8.2 mg/dL (8.5-10.1); CREATININE 0.7 mg/dL (0.55-1.3); MAGNESIUM 1.8 mg/dL (1.8-2.4); PHOSPHOROUS 2.9 mg/dL (2.5-4.9); POTASSIUM 3.7 mmol/L (3.5-5.1); TOT PROT 6.2 g/dl (6.4-8.2); URIC ACID 2.2 mg/dL (2.6-7.2)
--- NOTE | 2019-07-26 08:13 | PN ---
Progress Note (short form) - Note Progress Note: feels improved ate a bit ambulating to the bathroom one episode diarrhea yeaterday alert Vital Signs Period Temp Pulse Resp BP Sys/Mccullough Pulse Ox Last 24 Hr 99.5 F-101.3 F 73-92 17-20 94-126/57-72 96-99 cor-rrr lungs clear abd soft,nt ext no edema lacy rash- unchanged, mainly torso, less on arms and hands CBC, BMP 07/26/19 05:45 07/26/19 05:45 mnospot negative hiv negative Microbiology 07/25/19 06:57 Blood - Peripheral Venous Blood Culture - Preliminary NO GROWTH OBTAINED AFTER 24 HOURS, INCUBATION TO CONTINUE FOR 4 DAYS. 07/25/19 06:57 Blood - Peripheral Venous Blood Culture - Preliminary NO GROWTH OBTAINED AFTER 24 HOURS, INCUBATION TO CONTINUE FOR 4 DAYS. 07/25/19 10:46 Cerebral Spinal Fluid - Lumbar Puncture Gram Stain - Final malaria smear pending serologies pending us with splenomegaly a/p FUO Leukopenia Thrombocytopenia rash abnl lfts r/o viral infection- ebv, cmv, zika, chikagunya, dengue, parvo, hiv r/o tick illness- cover for febrile neutropenia cefepime/doxycycline neutropenic precautions Problem List - Problems (1) Neutropenic fever Code(s): D70.9 - NEUTROPENIA, UNSPECIFIED; R50.81 - FEVER PRESENTING WITH CONDITIONS CLASSIFIED ELSEWHERE (2) Thrombocytopenia Code(s): D69.6 - THROMBOCYTOPENIA, UNSPECIFIED (3) Transaminitis Code(s): R74.0 - NONSPEC ELEV OF LEVELS OF TRANSAMNS & LACTIC ACID DEHYDRGNSE
[2019-07-26] MEDS ORDERED: DOXYCYCLINE HYCLATE 100 MG VIAL ONE ×2 (09:16→20:06)
[2019-07-26] MEDS: DOXYCYCLINE INJECTION 100 MG in DEXTROSE 5%-WATER 100 ML IVPB SCH ×2 (09:33→21:43)
[2019-07-26 09:44] LABS: ANISOCYTOSIS 0; MACROCYTOSIS 0; PLATELET ESTIMATE DECREASED
--- NOTE | 2019-07-26 14:00 | PN ---
Progress Note (short form) - Note Progress Note: Patient seen and examined Feels well denies any complaints Last Vital Signs Temp Pulse Resp BP Pulse Ox 99.6 F 67 18 112/60 97 07/26/19 13:41 07/26/19 13:41 07/26/19 13:41 07/26/19 13:41 07/26/19 09:00 Cor: RSR, No murmurs, No gallops Lungs: Clear to P&A Abd: Soft, Normal bowel sounds, No organomegaly Ext:No significant edema Labs/Meds reviewed A./P 28 year old male with no reported past medical history presents with complaint of fever and malaise. He endorses that symptoms began four days ago, without obvious precipitating factor. Subjective fever, became associated with a non- pruritic rash patient noted along his chest and ventral aspect of forearms. He denies prior episodes of similar symptoms. He admits recent travel to [place] (07/13- 07/20) where he swam in beach, ate raw shrimp, and admits few bug bites symptoms started on day of return to [facility] . Reports fever for 4 days. No cough/SOB/abdominal pain/darrhea/urinary symptoms. Pancytopenia /leukopenia /abnormal LFTs/skin rash/fevers/myalgias-- ? viral syndrome. Monitor fever curve check flow IV fluids s/p LP s/p 2 units monodonor platelets check U/S inguinal area ? reactive nodes
--- NOTE | 2019-07-26 16:17 | PN ---
Progress Note (short form) - Note Progress Note: Subjective: No fever this am . He feels better. rash onhis body is getting better. it started even befre Abx were given. had 2 episodes of diarrhea today. no abd pain. No CP , no cough. no dysuria . denies drug use, or blood transfusion Objective: Vital Signs: Last Vital Signs Temp Pulse Resp BP Pulse Ox 99.6 F 67 18 112/60 97 07/26/19 13:41 07/26/19 13:41 07/26/19 13:41 07/26/19 13:41 07/26/19 09:00 Laboratory Results - last 24 hr 07/25/19 07/25/19 07/25/19 06:57 12:00 12:00 WBC RBC Hgb Hct MCV MCH MCHC RDW Plt Count MPV Absolute Neuts (auto) Total Counted Neutrophils % Neutrophils % (Manual) Band Neutrophils % Lymphocytes % Lymphocytes % (Manual) Monocytes % Monocytes % (Manual) Eosinophils % Eosinophils % (Manual) Basophils % Basophils % (Manual) Myelocytes % (Man) Promyelocytes % (Man) Blast Cells % (Manual) Nucleated RBC % Metamyelocytes Differential Comment Hypochromia Platelet Estimate Platelet Comment Polychromasia Poikilocytosis Anisocytosis Microcytosis Macrocytosis Retic Count PT with INR INR PTT (Actin FS) Fibrinogen Sodium Potassium Chloride Carbon Dioxide Anion Gap BUN Creatinine Est GFR (CKD-EPI)AfAm Est GFR (CKD-EPI)NonAf Random Glucose Uric Acid Calcium Phosphorus Magnesium Total Bilirubin AST ALT Alkaline Phosphatase LD Total Creatine Kinase 335 H Creatine Kinase Index 0.3 CK-MB (CK-2) 1.1 Troponin I < 0.02 Total Protein Albumin Hep A IgM Ab Confirm Cancelled Negative Hep Bs Antigen Cancelled Negative Hep Bs Ag Confirmation Cancelled Hep B Core IgM Ab Cancelled Negative Hepatitis C Ab (EIA) Cancelled <0.1 Infectious Dickens Assay Negative Blood Type Antibody Screen 07/25/19 07/25/19 07/25/19 19:00 19:00 19:00 WBC 1.2 L* RBC 4.81 Hgb 14.2 Hct 42.3 MCV 88.0 MCH 29.5 MCHC 33.6 RDW 13.6 Plt Count 50 L MPV 9.4 Absolute Neuts (auto) 0.4 L Total Counted 100 Neutrophils % No Result Required. Neutrophils % (Manual) 32.0 L Band Neutrophils % 2.0 Lymphocytes % No Result Required. Lymphocytes % (Manual) 48.0 H D Monocytes % Monocytes % (Manual) 14 H Eosinophils % Eosinophils % (Manual) 2.0 Basophils % Basophils % (Manual) Myelocytes % (Man) Promyelocytes % (Man) Blast Cells % (Manual) Nucleated RBC % 0 Metamyelocytes Differential Comment Man diff performed Hypochromia Platelet Estimate Mod decreased Platelet Comment Morphology normal. Polychromasia Poikilocytosis Anisocytosis Microcytosis Macrocytosis Retic Count PT with INR 14.10 H INR 1.19 H PTT (Actin FS) 33.2 Fibrinogen 200.0 L Sodium Potassium Chloride Carbon Dioxide Anion Gap BUN Creatinine Est GFR (CKD-EPI)AfAm Est GFR (CKD-EPI)NonAf Random Glucose Uric Acid Calcium Phosphorus Magnesium Total Bilirubin AST ALT Alkaline Phosphatase LD Total Creatine Kinase Creatine Kinase Index CK-MB (CK-2) Troponin I Total Protein Albumin Hep A IgM Ab Confirm Hep Bs Antigen Hep Bs Ag Confirmation Hep B Core IgM Ab Hepatitis C Ab (EIA) Infectious Dickens Assay Blood Type Antibody Screen 07/25/19 07/25/19 07/25/19 19:00 19:00 19:00 WBC RBC Hgb Hct MCV MCH MCHC RDW Plt Count MPV Absolute Neuts (auto) Total Counted Neutrophils % Neutrophils % (Manual) Band Neutrophils % Lymphocytes % Lymphocytes % (Manual) Monocytes % Monocytes % (Manual) Eosinophils % Eosinophils % (Manual) Basophils % Basophils % (Manual) Myelocytes % (Man) Promyelocytes % (Man) Blast Cells % (Manual) Nucleated RBC % Metamyelocytes Differential Comment Hypochromia Platelet Estimate Platelet Comment Polychromasia Poikilocytosis Anisocytosis Microcytosis Macrocytosis Retic Count 0.26 L PT with INR INR PTT (Actin FS) Fibrinogen Sodium Potassium Chloride Carbon Dioxide Anion Gap BUN Creatinine Est GFR (CKD-EPI)AfAm Est GFR (CKD-EPI)NonAf Random Glucose Uric Acid 2.2 L Calcium Phosphorus Magnesium Total Bilirubin AST ALT Alkaline Phosphatase LD Total 413 H Creatine Kinase Creatine Kinase Index CK-MB (CK-2) Troponin I Total Protein Albumin Hep A IgM Ab Confirm Hep Bs Antigen Hep Bs Ag Confirmation Hep B Core IgM Ab Hepatitis C Ab (EIA) Infectious Dickens Assay Blood Type O POSITIVE Antibody Screen Negative 07/25/19 07/26/19 07/26/19 19:00 05:45 05:45 WBC 1.5 L* RBC 4.76 Hgb 14.0 Hct 41.6 MCV 87.4 MCH 29.5 MCHC 33.8 RDW 13.6 Plt Count 84 L D MPV 9.0 Absolute Neuts (auto) 0.4 L Total Counted Neutrophils % 26.2 L D Neutrophils % (Manual) 32.4 L Band Neutrophils % 0.0 Lymphocytes % 44.9 H Lymphocytes % (Manual) 42.8 H Monocytes % 19.1 H Monocytes % (Manual) 11 H Eosinophils % 8.6 H D Eosinophils % (Manual) 4.8 H D Basophils % 1.2 Basophils % (Manual) 0.0 Myelocytes % (Man) 0 Promyelocytes % (Man) 0 Blast Cells % (Manual) 0 Nucleated RBC % 0 Metamyelocytes 0 Differential Comment Hypochromia 0 Platelet Estimate Decreased Platelet Comment Polychromasia 0 Poikilocytosis 0 Anisocytosis 0 Microcytosis 0 Macrocytosis 0 Retic Count PT with INR INR PTT (Actin FS) Fibrinogen Sodium 140 Potassium 3.7 Chloride 106 Carbon Dioxide 27 Anion Gap 6 L BUN 6.3 L Creatinine 0.7 Est GFR (CKD-EPI)AfAm 148.85 Est GFR (CKD-EPI)NonAf 128.43 Random Glucose 88 Uric Acid 2.2 L Calcium 8.2 L Phosphorus 2.9 Magnesium 1.8 Total Bilirubin 0.5 AST 126 H ALT 131 H Alkaline Phosphatase 39 L LD Total 384 H Creatine Kinase Creatine Kinase Index CK-MB (CK-2) Troponin I Total Protein 6.2 L Albumin 3.4 Hep A IgM Ab Confirm Hep Bs Antigen Hep Bs Ag Confirmation Hep B Core IgM Ab Hepatitis C Ab (EIA) Infectious Dickens Assay Blood Type O POSITIVE Antibody Screen 07/26/19 07/26/19 07/26/19 05:45 05:45 05:45 WBC RBC Hgb Hct MCV MCH MCHC RDW Plt Count MPV Absolute Neuts (auto) Total Counted Neutrophils % Neutrophils % (Manual) Band Neutrophils % Lymphocytes % Lymphocytes % (Manual) Monocytes % Monocytes % (Manual) Eosinophils % Eosinophils % (Manual) Basophils % Basophils % (Manual) Myelocytes % (Man) Promyelocytes % (Man) Blast Cells % (Manual) Nucleated RBC % Metamyelocytes Differential Comment Hypochromia Platelet Estimate Platelet Comment Polychromasia Poikilocytosis Anisocytosis Microcytosis Macrocytosis Retic Count PT with INR 13.20 H INR 1.12 H PTT (Actin FS) 30.7 Fibrinogen 224.0 L Sodium Potassium Chloride Carbon Dioxide Anion Gap BUN Creatinine Est GFR (CKD-EPI)AfAm Est GFR (CKD-EPI)NonAf Random Glucose Uric Acid Calcium Phosphorus Magnesium Total Bilirubin AST ALT Alkaline Phosphatase LD Total Creatine Kinase 237 Creatine Kinase Index No Result Required. CK-MB (CK-2) < 1.0 Troponin I Total Protein Albumin Hep A IgM Ab Confirm Hep Bs Antigen Hep Bs Ag Confirmation Hep B Core IgM Ab Hepatitis C Ab (EIA) Infectious Dickens Assay Blood Type Antibody Screen Physical Exam: NAd. awake, alert, comfortable. Nl oropharynx, white tongue with areas of red( ? strawberry tongue ) . No lymphadenopathy in neck CV: RRR, no MRG Lungs: CTAB . Abd: sfot, NT, Nd, NL BS. No hepatomegaly. tympany over Last 2 left intercostal spaces which might suggest splenomegaly Ext: No edema or erythema. Skin: maculopapular rash on trunk, and extremities. peeling skin on hands. No janeway lesions or Osler's nodes. Nl nails Lymphatic system: no lymphadenopathy in neck or axillary areas. has 1.5 spindle shaped tender lymphnode in R groin, and 1 cm similar one in L groin. both nodes are mobile under the skin and on the deep tissue. Imaging: cxray and RUQ US and CT reports reviewed. Assessment/Plan: 28 y/o man with no significant PMH who presented with fever and was found to have neutropenia and thrombocytopenia. 1- Fever: no clear source yet. Infectious Vs hematologic causes. has lymphadenopathy in groins, but nodes are tender, small and mobile. - HIV neg, hep serology neg, Monospot neg - f/u remaining tests - CSF G stain neg. final cx pending. No signs of meningitis - follow blood cx. neg to date - cont cefepime and doxy - obtain US of the groins after d/w hematology . - flow cytometry pending - Low fibrinogen, is of unclear significance now, as it is improving and his PTT is nl, PT is slightly elevated. repeat tomorrow - Not sure of the significance of LDH, no signs of hemolysis. ? lymphoma. 2- Transaminitis : heaptocellular picture. could be part of the possible viral syndrome . No evidence of stones, and no US evidence of cholecystitis or CBD dilation - Hepatitis serology neg - repeat in am 3- Pancytopenia: hopefully due to viral illness. r/o leukemia and lymphoma - flowcytometry pending - US of groin lymph nodes - patient and family were informed of the need for lymph node Bx in near future , if it lymphadenopathy does not resolve. - Monitor blood count 4- DVT Px: SCds as has thrombocytopenia Visit type - Emergency Visit Emergency Visit: Yes ED Registration Date: 07/25/19 Care time: The patient presented to the Emergency Department on the above date and was hospitalized for further evaluation of their emergent condition. - New Patient This patient is new to me today: No - Critical Care Critical Care patient: No
[2019-07-26] MEDS: LACTOBACILLUS ACIDOPHILUS 1 TABLET PO SCH (17:20)
[2019-07-26] MEDS: SODIUM CHLORIDE 1,000 ML IV SCH (21:43)
[2019-07-27] MEDS ORDERED: CEFEPIME HCL 2 GM VIAL (RESTRICTED TO ID) ONE ×2 (01:34→09:22)
[2019-07-27] MEDS ORDERED: DEXTROSE 5%-WATER 100 ML IVPB ONE ×4 (01:34→21:30)
[2019-07-27] MEDS: CEFEPIME 2 GM in DEXTROSE 5%-WATER 100 ML IVPB SCH ×2 (02:32→09:59)
[2019-07-27 07:16] LABS: BASO % 0.5 % (0-2.0); EOS % 7.4 % (0-4.5); HEMATOCRIT 41.4 % (35.4-49); HEMOGLOBIN 14.3 GM/dL (11.7-16.9); LYMPH % 40.1 % (8-40); MCH 29.8 pg (25.7-33.7); MCHC 34.5 g/dl (32.0-35.9); MEAN CELL VOLUME 86.5 fl (80-96); MEAN PLT VOLUME 9.1 fl (7.5-11.1); MONO % 18.7 % (3.8-10.2); NEUT % 33.3 % (42.8-82.8); PLATELET COUNT 70 K/MM3 (134-434); RBC 4.78 M/mm3 (4.00-5.60); RDW 13.6 % (11.9-15.9); WHITE BLOOD COUNT 2.7 K/mm3 (4.0-10.0)
[2019-07-27 07:28] LABS: INR 1.11 (0.83-1.09); PROTHROMBIN TIME (PATIENT) 13.1 SEC (9.7-13.0)
[2019-07-27 07:30] LABS: ACTIVATED PTT 28.9 SECONDS (25.2-36.5)
[2019-07-27 07:38] LABS: ALBUMIN 3.3 g/dl (3.4-5.0); BILIRUBIN,TOTAL 0.5 mg/dL (0.2-1); BLOOD UREA NITROGEN 9.4 mg/dL (7-18); CALCIUM 8.3 mg/dL (8.5-10.1); CREATININE 0.7 mg/dL (0.55-1.3); MAGNESIUM 2.1 mg/dL (1.8-2.4); PHOSPHOROUS 2.8 mg/dL (2.5-4.9); POTASSIUM 3.9 mmol/L (3.5-5.1); TOT PROT 6.5 g/dl (6.4-8.2)
[2019-07-27] MEDS ORDERED: DOXYCYCLINE HYCLATE 100 MG VIAL ONE ×2 (09:21→21:30)
[2019-07-27 09:42] LABS: ANISOCYTOSIS 0; MACROCYTOSIS 0; PLATELET ESTIMATE DECREASED
[2019-07-27] MEDS: LACTOBACILLUS ACIDOPHILUS 1 TABLET PO SCH (09:59)
[2019-07-27] MEDS: DOXYCYCLINE INJECTION 100 MG in DEXTROSE 5%-WATER 100 ML IVPB SCH ×2 (09:59→21:42)
--- NOTE | 2019-07-27 13:09 | PN ---
Teaching Attending Note Name of Resident: Ernesto Galvez ATTENDING PHYSICIAN STATEMENT I saw and evaluated the patient. I reviewed the resident's note and discussed the case with the resident. I agree with the resident's findings and plan as documented. SUBJECTIVE: No pain, no fever , no SOB, no N/V. one episode of diarrhea, no hematochezia. OBJECTIVE: NAd. awake, alert, comfortable. CV: RRR, no MRG . Lungs: CTAB. Ext: No edema or erythema. Skin: maculopapular rash on trunk and proximal extremities improved. new peticheal rash on lower legs and posterior L shoulder. Assessment/Plan: 28 y/o man with no significant PMH who presented with fever and was found to have neutropenia and thrombocytopenia. 1- Fever: no clear source yet. Infectious Vs hematologic causes. new peticheal rash today---> Dungue fever? - no new serology or micro results today . Final CSF cx neg - WBC and plt counts are recovering. - follow blood cx - cont cefepime and Doxy - US of groin pending - fibrinogen level is normal today - US for groin is pending - flow cytometry pending - Not sure of the significance of LDH, no signs of hemolysis, haptogloban nl. ? lymphoma. - check ESR CRP. MARGE 2- Transaminitis: LFTS are worse today. could be due to the suspected viral infection VS Leptospirosis VS otehr - check MARGE, and anti smooth muscle Abs. AMA needs authorization - follow 3- Pancytopenia: hopefully due to viral illness. r/o leukemia and lymphoma - flowcytometry pending - US of groin lymph nodes pending 4- DVT Px: SCds as has thrombocytopenia patient informs me he is planning to signs AMA on Wednesday. he understands that we don't have a diagnosis yet, and we re not sure of a definite treatment plan. he also understands that he might get much worse and get other infections since he is neutropenic. he was advised to stay
--- NOTE | 2019-07-27 14:08 | PN ---
Progress Note (short form) - Note Progress Note: feels improved no fevers 2 loose stools today Vital Signs Period Temp Pulse Resp BP Sys/Mccullough Pulse Ox Last 24 Hr 97.8 F-98.8 F 60-72 18-18 101-115/48-66 97-97 cor-rrr lungs clear abd soft,nt ext no edema lacy rash on back unchanged, now on legs as well CBC, BMP 07/27/19 06:20 07/27/19 06:20 anc 900 Microbiology 07/25/19 10:46 Cerebral Spinal Fluid - Lumbar Puncture Gram Stain - Final 07/25/19 10:46 Cerebral Spinal Fluid - Lumbar Puncture CSF Culture - Final 07/25/19 06:57 Blood - Peripheral Venous Blood Culture - Preliminary NO GROWTH OBTAINED AFTER 48 HOURS, INCUBATION TO CONTINUE FOR 3 DAYS. 07/25/19 06:57 Blood - Peripheral Venous Blood Culture - Preliminary NO GROWTH OBTAINED AFTER 48 HOURS, INCUBATION TO CONTINUE FOR 3 DAYS. 07/26/19 05:45 Blood - Peripheral Venous Blood Parasites Smear - Final 07/25/19 06:31 Throat Throat Culture - Final NO BETA HEMOLYTIC STREPTOCOCCI ISOLATED 07/25/19 09:00 Urine - Urine Clean Catch Urine Culture - Final NO GROWTH OBTAINED malaria smear negative monospot negative hiv negative serologies pending us with splenomegaly a/p FUO Leukopenia Thrombocytopenia rash abnl lfts elevated LDH r/o viral infection- ebv, cmv, zika, chikagunya, dengue, parvo, hiv r/o tick illness- with negative blood cultures and recovering wbc count will d/c cefepime continue doxycycline serologies pending neutropenic precautions Problem List - Problems (1) Neutropenic fever Code(s): D70.9 - NEUTROPENIA, UNSPECIFIED; R50.81 - FEVER PRESENTING WITH CONDITIONS CLASSIFIED ELSEWHERE (2) Thrombocytopenia Code(s): D69.6 - THROMBOCYTOPENIA, UNSPECIFIED (3) Transaminitis Code(s): R74.0 - NONSPEC ELEV OF LEVELS OF TRANSAMNS & LACTIC ACID DEHYDRGNSE
--- NOTE | 2019-07-27 17:44 | PN ---
Physical Exam: SUBJECTIVE: Patient seen and examined NAEON. Last Tmax 100.5 @0600 07/26/19 Endorses improvement of chest rash. Has some itching of b/l lower flank. Thinks b/l inguinal LN have decreased in size. Refuses U/S inguinal LNs. OBJECTIVE: Vital Signs Period Temp Pulse Resp BP Sys/Mccullough Pulse Ox Last 24 Hr 97.8 F-98.8 F 60-72 18-18 101-120/48-71 97-97 GENERAL: The patient is awake, alert, and fully oriented, in no acute distress. HEAD: NC. AT EYES: sclera anicteric, conjunctiva clear. No ptosis. ENT: Ears normal, nares patent, oropharynx clear without exudates, moist mucous membranes. NECK: Trachea midline, full range of motion, supple. No cervical LAD CHEST: mild lenticular erythema of chest w/o raised lesions. Diffuse nonblanching petichiae throughout chest LUNGS: Breath sounds equal, clear to auscultation bilaterally, no wheezes, no crackles, no accessory muscle use. HEART: Regular rate and rhythm, S1, S2 without murmur, rub or gallop. ABDOMEN: Soft, nontender, nondistended, normoactive bowel sounds, no guarding, no rebound GROIN: subcentimeter mobile nontender inguinal LN in Right and Left inguinal region. Normal-sized testicles, no epidymal pain, no drainage from glans EXTREMITIES: 2+ pulses, warm, well-perfused, no edema. NEUROLOGICAL: Normal speech SKIN: Warm, dry, normal turgor. Diffuses petichiae of chest, back, BLE. No raised lesions. Laboratory Results - last 24 hr 07/25/19 07/25/19 07/27/19 18:30 19:00 06:20 WBC 2.7 L RBC 4.78 Hgb 14.3 Hct 41.4 MCV 86.5 MCH 29.8 MCHC 34.5 RDW 13.6 Plt Count 70 L MPV 9.1 Absolute Neuts (auto) 0.9 L Neutrophils % 33.3 L D Neutrophils % (Manual) 37.0 L Band Neutrophils % 0.0 Lymphocytes % 40.1 H Lymphocytes % (Manual) 27.0 D Monocytes % 18.7 H Monocytes % (Manual) 15 H Eosinophils % 7.4 H Eosinophils % (Manual) 3.0 Basophils % 0.5 Basophils % (Manual) 1.0 D Myelocytes % (Man) 0 Promyelocytes % (Man) 0 Blast Cells % (Manual) 0 Nucleated RBC % 0 Metamyelocytes 0 Hypochromia 0 Platelet Estimate Decreased Polychromasia 0 Poikilocytosis 0 Anisocytosis 0 Microcytosis 0 Macrocytosis 0 ESR Haptoglobin 98 PT with INR INR PTT (Actin FS) Fibrinogen Sodium Potassium Chloride Carbon Dioxide Anion Gap BUN Creatinine Est GFR (CKD-EPI)AfAm Est GFR (CKD-EPI)NonAf Random Glucose Calcium Phosphorus Magnesium Total Bilirubin AST ALT Alkaline Phosphatase LD Total C-Reactive Protein Total Protein Albumin Lyme Screen IgG & IgM <0.91 07/27/19 07/27/19 07/27/19 06:20 06:20 06:26 WBC RBC Hgb Hct MCV MCH MCHC RDW Plt Count MPV Absolute Neuts (auto) Neutrophils % Neutrophils % (Manual) Band Neutrophils % Lymphocytes % Lymphocytes % (Manual) Monocytes % Monocytes % (Manual) Eosinophils % Eosinophils % (Manual) Basophils % Basophils % (Manual) Myelocytes % (Man) Promyelocytes % (Man) Blast Cells % (Manual) Nucleated RBC % Metamyelocytes Hypochromia Platelet Estimate Polychromasia Poikilocytosis Anisocytosis Microcytosis Macrocytosis ESR Haptoglobin PT with INR 13.10 H INR 1.11 H PTT (Actin FS) 28.9 Fibrinogen 239.0 Sodium 141 Potassium 3.9 Chloride 110 H Carbon Dioxide 27 Anion Gap 5 L BUN 9.4 Creatinine 0.7 Est GFR (CKD-EPI)AfAm 148.85 Est GFR (CKD-EPI)NonAf 128.43 Random Glucose 83 Calcium 8.3 L Phosphorus 2.8 Magnesium 2.1 Total Bilirubin 0.5 AST 212 H ALT 234 H Alkaline Phosphatase 42 L LD Total 458 H C-Reactive Protein 5.5 H Total Protein 6.5 Albumin 3.3 L Lyme Screen IgG & IgM 07/27/19 15:00 WBC RBC Hgb Hct MCV MCH MCHC RDW Plt Count MPV Absolute Neuts (auto) Neutrophils % Neutrophils % (Manual) Band Neutrophils % Lymphocytes % Lymphocytes % (Manual) Monocytes % Monocytes % (Manual) Eosinophils % Eosinophils % (Manual) Basophils % Basophils % (Manual) Myelocytes % (Man) Promyelocytes % (Man) Blast Cells % (Manual) Nucleated RBC % Metamyelocytes Hypochromia Platelet Estimate Polychromasia Poikilocytosis Anisocytosis Microcytosis Macrocytosis ESR 10 Haptoglobin PT with INR INR PTT (Actin FS) Fibrinogen Sodium Potassium Chloride Carbon Dioxide Anion Gap BUN Creatinine Est GFR (CKD-EPI)AfAm Est GFR (CKD-EPI)NonAf Random Glucose Calcium Phosphorus Magnesium Total Bilirubin AST ALT Alkaline Phosphatase LD Total C-Reactive Protein Total Protein Albumin Lyme Screen IgG & IgM Active Medications Generic Name Dose Route Start Last Admin Trade Name Freq PRN Reason Stop Dose Admin Doxycycline Hyclate 100 mg/ 100 mls @ 100 mls/hr 07/25/19 22:00 07/27/19 09: 59 Dextrose IVPB 100 mls/hr BID ANGELIQUE Administration Lactobacillus Acidophilus 1 tab 07/26/19 15:00 07/27/19 09:59 Bacid - PO 1 tab DAILY ANGELIQUE Administration ASSESSMENT/PLAN: 28 year old male with no reported past medical history presents with complaint of fever and malaise. Had recent flow in from vacationing in [place], 5d prior to admission. Had unremarkable vacation. Swam in ocean, ate raw shrimp. had some sneezing. Admitted for neutropenic fever. LP neg. Imaging neg. Labwork for viral w/u is still pending. Receive plts x2 for thrombocytopenia. # Neutropenic fever --Unclear etiology of leukopenia, possibly viral infectious. - ED regimen: Vancomcin, Cefepime > LP(07/25/19): WBC 2, RBC none, glucose 64, total protein 31. Gram stain neg -- unremarkable > BCX(07/25/19): NGTD. Neg parasite smear > UCX(07/25/19): NGTD > throat CX(07/25/19): NGTD > CXR(07/25/19): neg for acute path > CT H: neg for intracranial path > viral serology: Dieudonne Baptiste virus, Herpes Simplex virus, HIV(neg), influ(neg) , Lyme(0.91 --equivocal), infectious mono assay(neg) --pending > parasite serology: Dengue fever, chinchikungunya fever, Zikka fever, Plasmodium studies --pending -Neutropenic precautions -ID recommendations (Dr. Mayes) appreciated --abx regimen: dc cefepime, cw doxycylcine --day 2 -Hematology recommendations (Dr. Melvin) appreciated --flow cytometry --pending --US inguinal area to eval nodes --pt refuses # Transaminitis --unknow if 2/2 virus vs drug reaction --increasing LFTs > US RUQ(07/25/19): neg stone, splenomegaly noted > Hep panel: neg - AST 117-->212/ ALT 125-->234. Alk phos 42. Total bili 0.5 - fu MARGE, anti-smooth muscle, ESR, CRP - cw monitoring - Thrombocytopenia --possibly 2/2 viral infection vs malignancy --improved after transfusions > Plt 56 --> 70 - s/p platelets x2 - trend FEN - Regular diet, neutropenic modification Prophylaxis - SCDs given thrombocytopenia Disposition - [facility] - lives in [place], [place] Visit type - Emergency Visit Emergency Visit: No - New Patient This patient is new to me today: No - Critical Care Critical Care patient: No ATTENDING PHYSICIAN STATEMENT I saw and evaluated the patient. I reviewed the resident's note and discussed the case with the resident. I agree with the resident's findings and plan as documented. SUBJECTIVE: OBJECTIVE: ASSESSMENT AND PLAN:
--- NOTE | 2019-07-27 18:54 | PN ---
Progress Note (short form) - Note Progress Note: Patient seen and examined Feels well Minimal leg rash, he mentioned it present in the chest before. Last Vital Signs Temp Pulse Resp BP Pulse Ox 97.9 F 63 18 120/71 97 07/27/19 14:35 07/27/19 14:35 07/27/19 14:35 07/27/19 14:35 07/27/19 09:00 Cor: RSR, No murmurs, No gallops Lungs: Clear to P&A Abd: Soft, Normal bowel sounds, No organomegaly Ext:No significant edema 07/27/19 06:20 07/27/19 06:20 Current Medications Doxycycline Hyclate 100 mg/ (Dextrose) 100 mls @ 100 mls/hr IVPB BID [facility] Last Admin: 07/27/19 09:59 Dose: 100 mls/hr Lactobacillus Acidophilus (Bacid -) 1 tab PO DAILY [facility] Last Admin: 07/27/19 09:59 Dose: 1 tab A./P 28 year old male with no reported past medical history presents with complaint of fever and malaise. He endorses that symptoms began four days ago, without obvious precipitating factor. Subjective fever, became associated with a non- pruritic rash patient noted along his chest and ventral aspect of forearms. He denies prior episodes of similar symptoms. He admits recent travel to [place] (07/13- 07/20) where he swam in beach, ate raw shrimp, and admits few bug bites symptoms started on day of return to [facility] . Reports fever for 4 days. No cough/SOB/abdominal pain/darrhea/urinary symptoms. Pancytopenia /leukopenia /abnormal LFTs/skin rash/fevers/myalgias-- ? viral syndrome. Monitor fever curve check flow IV fluids s/p LP s/p 2 units monodonor platelets check U/S inguinal area. Pt refused
[2019-07-28 04:08] LABS: CMV IgM < 30.0 AU/mL (0.0-29.9)
[2019-07-28 08:15] LABS: BASO % 0.7 % (0-2.0); EOS % 4.7 % (0-4.5); HEMATOCRIT 42.2 % (35.4-49); HEMOGLOBIN 14.5 GM/dL (11.7-16.9); LYMPH % 47.8 % (8-40); MCH 29.8 pg (25.7-33.7); MCHC 34.3 g/dl (32.0-35.9); MEAN PLT VOLUME 9.7 fl (7.5-11.1); MONO % 17.5 % (3.8-10.2); NEUT % 29.3 % (42.8-82.8); PLATELET COUNT 78 K/MM3 (134-434); RBC 4.85 M/mm3 (4.00-5.60); RDW 13.9 % (11.9-15.9); WHITE BLOOD COUNT 4.1 K/mm3 (4.0-10.0)
[2019-07-28 08:30] LABS: ALBUMIN 3.5 g/dl (3.4-5.0); ALK PHOS 49 U/L (45-117); ANION GAP 5 MMOL/L (8-16); BILIRUBIN,TOTAL 0.6 mg/dL (0.2-1); BLOOD UREA NITROGEN 11.2 mg/dL (7-18); CALCIUM 8.7 mg/dL (8.5-10.1); CHLORIDE 108 mmol/L (98-107); CO2 28 mmol/L (21-32); CREATININE 0.7 mg/dL (0.55-1.3); GLUCOSE,RANDOM 79 mg/dL (74-106); MAGNESIUM 2.3 mg/dL (1.8-2.4); PHOSPHOROUS 3.7 mg/dL (2.5-4.9); POTASSIUM 4.1 mmol/L (3.5-5.1); SGOT/AST 652 U/L (15-37); SGPT/ALT 727 U/L (13-61); SODIUM 141 mmol/L (136-145); TOT PROT 6.7 g/dl (6.4-8.2)
--- NOTE | 2019-07-28 10:17 | CON.GI ---
Consult Consult Specialty:: Abnormal liver chemistries Referred by:: Hospitalist Service Reason for Consultation:: Abnormal Liver chemistries - History of Present Illness Chief Complaint: Fevers History of Present Illness: 28M admitted for evaluation of persistent fevers. This started saturday 07/21 after having returned from a 1 week, uneventful trip to [place]. Prior to that he was in [place], [place], where he lives. Noted to be neutropenic, thrombocytopenic, with mild transamitis. Was given cefepime and received 5 doses of doxycycline. Transaminases have risen. he has some loose bowel movements that have resolved. Noticed a rash on his face and arms that started wednesday. It is now just on his legs. He denies OTC / herbal supplements. He was taking 2 tylenol tabs Q8 Hrs when he initially started having fevers. received 1 dose of IV tylenol on admission. He denies a known family / personal history of liver disease / autoimmune disease. No history of blood transfusions, tattoos. He is and describes being in a monogamous relationship. He denied any focal complaints prior to his current issues. Overall he states feeling well. Blood dyscrasias have improved. - History Source History Provided By: Patient, Medical Record Limitations to Obtaining History: No Limitations - Past Medical History Additional Medical History: Denies - Past Surgical History Additional Surgical History: Denies - Alcohol/Substance Use Hx Alcohol Use: No History of Substance Use: reports: None - Smoking History Smoking history: Never smoked Have you smoked in the past 12 months: No Aproximately how many cigarettes per day: 0 - Social History Usual Living Arrangement: With Spouse ADL: Independent Place of : [facility] History of Recent Travel: Yes ([place] x 1 week. Returned 07/21) Home Medications - Allergies Allergies/Adverse Reactions: Allergies Allergy/AdvReac Type Severity Reaction Status Date / Time No Known Allergies Allergy Verified 07/20/12 06:46 - Home Medications Home Medications: Ambulatory Orders Amox-Tr/K Cl [Augmentin 875Mg Tablet] 1 tab PO BID #20 tablet 07/20/12 No Home Medications 0 dose .ROUTE UTDICT 07/20/12 Family Medical History Other Family History: Mother: healthy. Father: DM II. 1 brother, 1 sister: healthy. 1 son: healthy. No family history of liver disease / colorectal cancer or other GI maligancny Review of Systems - Review of Systems Constitutional: reports: Chills Cardiovascular: denies: Chest Pain Respiratory: denies: SOB Gastrointestinal: reports: Diarrhea. denies: Abdominal Pain, Dysphagia, Indigestion, Melena, Nausea, Rectal Bleeding, Vomiting Physical Exam-GI Vital Signs: Vital Signs Temperature 98.4 F 07/28/19 06:00 Pulse Rate 56 L 07/28/19 06:00 Respiratory Rate 18 07/28/19 06:00 Blood Pressure 107/57 L 07/28/19 06:00 O2 Sat by Pulse Oximetry (%) 97 07/27/19 21:00 Constitutional: Yes: Calm Eyes: No: Sclera Icterus Cardiovascular: Yes: Bradycardia. No: Murmur Respiratory: Yes: CTA Bilaterally Gastrointestinal Inspection: No: Distention, Scars ...Auscultate: No: Normoactive Bowel Sounds ...Palpate: Yes: Soft. 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 Improving clinically and rash appears to be dissipating. Transaminases are rising, however and he remains asymptomatic. A drug induced liver injury would need to be considered, possibly from cefepime / doxycyline or combination. Per discussion with Dr. lake, Doxycyline will be discontinued and cefepime completed Monitor liver chemistries off of Abx and avoid hepatotoxic agents Autoimmune hepatitis serologies have been drawn. This sounds like an acute event and the neutropenia / thrombocytopenia does not fit the typical picture of AIH Leptospirosis / Plasmodium serologies pending EBV IgM Ab Pending Code(s): R74.0 - NONSPEC ELEV OF LEVELS OF TRANSAMNS & LACTIC ACID DEHYDRGNSE
[2019-07-28] MEDS: LACTOBACILLUS ACIDOPHILUS 1 TABLET PO SCH (11:01)
[2019-07-28 12:32] VITALS: BP 122/62; PULSE 60; TEMP 98.3
--- NOTE | 2019-07-28 13:30 | PATH ---
Surgical Pathology Report Patient Name: LAMIN BROOKS [facility]. Rec. #: [id number] /Age/Gender: 1990 (Age: 28) / M Account: [id number] Location: [facility] MED/SURG Taken: 07/26/2019 Received: 07/27/2019 Reported: 07/28/2019 Physicians: Vira Rosales M.D. Specimen(s) Received PERIPHERAL BLOOD Clinical History Anemia, thrombocytopenia Final Diagnosis COMPREHENSIVE FLOW CYTOMETRY performed and interpreted at [facility], [place], [place] ([id number]) INTERPRETATION: There is no evidence of B or T-cell proliferative disorders, or increased blasts. Mild polytypic plasmacytosis. Phenotype: The CD34+ myeloblasts are <0.1%. Granulocytes are 50% of total cells. Monocytes are 9% of total cells. There is no overt abnormal myeloid antigen expression. The B-cells (2% of total) appear polytypic. The T-cells (28% of total) show no piña T-cell antigenic deletion. .The pasma cells (1% of total events) appear polytypic. See [facility] report for additional details. Electronically Signed Sarahi Alvarado M.D. Addendum Reported: 07/28/2019 Addendum Diagnosis MYELODYSPLASIA FISH PANEL performed and interpreted at [facility] in [place], [place] ([id number]) shows the following. INTERPRETATION: No evidence of deletion 5q or monosomy 5 is present. No evidence of deletion 7q or monosomy 7 is present. No evidence of trisomy 8 (+8) is present. No evidence of deletion 13q14.2 is present. No evidence of a rearrangement of 11q23. No evidence of a deletion of the p53 (17p13) locus. No evidence of deletion 20q12 is present. No BCR/ABL1 t(9;22) translocation is detected. See [facility] report for details. Sarahi Alvarado M.D. Addendum Reported: 08/04/2019 Addendum Diagnosis CYTOGENETIC KARYOTYPE ANALYSIS performed and interpreted at [facility], [facility] shows the following: RESULTS: Tissue Culture Failure INTERPRETATION: This unstimulated peripheral blood specimen did not produce any analyzable metaphase cells and, therefore, chromosome analysis is not possible. A bone marrow aspirate, when clinically appropriate, is recommended. See [facility] report for additional details ([id number]). Sarahi Alvarado M.D. Gross Description Received are 4 green top tubes and 2 yellow top tubes of blood which are sent to [facility]. 07/27/201907/27/2019
--- NOTE | 2019-07-28 13:58 | PN ---
Teaching Attending Note Name of Resident: Ernesto Galvez ATTENDING PHYSICIAN STATEMENT I saw and evaluated the patient. I reviewed the resident's note and discussed the case with the resident. I agree with the resident's findings and plan as documented. went to see the patient and found him dressed up and ready to leave. he felt better and wanted to go home. he was advised to stay, as we don't have a diagnosis yet. also , he has a liver injury that is getting worse. risk of worsening condition including liver failure, and worsening primary process was explained to him. he uderstands the risks and in addition the risk of . family in room and is in agreement with him. he was advised to go to his doctor and was educated about any new sx. he was also advised to obtain his whole chart and present it to his doctor. KANDI
--- NOTE | 2019-07-28 15:44 | DS ---
Physical Exam: SUBJECTIVE: Patient seen and examined OBJECTIVE: Vital Signs Period Temp Pulse Resp BP Sys/Mccullough Pulse Ox Last 24 Hr 98.1 F-98.8 F 55-60 17-18 105-122/57-64 97-97 PHYSICAL EXAM GENERAL: The patient is awake, alert, and fully oriented, in no acute distress. HEAD: NC. AT EYES: sclera anicteric, conjunctiva clear. No ptosis. ENT: Ears normal, nares patent, oropharynx clear without exudates, moist mucous membranes. NECK: Trachea midline, full range of motion, supple. No cervical LAD CHEST: mild lenticular erythema of chest w/o raised lesions. Diffuse nonblanching petichiae throughout chest LUNGS: Breath sounds equal, clear to auscultation bilaterally, no wheezes, no crackles, no accessory muscle use. HEART: Regular rate and rhythm, S1, S2 without murmur, rub or gallop. ABDOMEN: Soft, nontender, nondistended, normoactive bowel sounds, no guarding, no rebound GROIN: subcentimeter mobile nontender inguinal LN in Right and Left inguinal region. Normal-sized testicles, no epidymal pain, no drainage from glans EXTREMITIES: 2+ pulses, warm, well-perfused, no edema. NEUROLOGICAL: Normal speech SKIN: Warm, dry, normal turgor. Diffuses petichiae of chest, back, BLE. No raised lesions. LABS Laboratory Results - last 24 hr 07/25/19 07/27/19 07/27/19 10:46 06:20 15:00 WBC RBC Hgb Hct MCV MCH MCHC RDW Plt Count MPV Absolute Neuts (auto) Neutrophils % Lymphocytes % Monocytes % Eosinophils % Basophils % Nucleated RBC % ESR 10 Sodium Potassium Chloride Carbon Dioxide Anion Gap BUN Creatinine Est GFR (CKD-EPI)AfAm Est GFR (CKD-EPI)NonAf Random Glucose Calcium Phosphorus Magnesium Total Bilirubin AST ALT Alkaline Phosphatase C-Reactive Protein Total Protein Albumin CMV IgG Ab < 0.60 CMV IgM Ab < 30.0 HSV I DNA Quant (PCR) Negative HSV II DNA Quant (PCR) Negative 07/28/19 07/28/19 07/28/19 06:45 06:45 06:45 WBC 4.1 RBC 4.85 Hgb 14.5 Hct 42.2 MCV 87.0 MCH 29.8 MCHC 34.3 RDW 13.9 Plt Count 78 L MPV 9.7 Absolute Neuts (auto) 1.2 L Neutrophils % 29.3 L Lymphocytes % 47.8 H Monocytes % 17.5 H Eosinophils % 4.7 H Basophils % 0.7 Nucleated RBC % 0 ESR 8 Sodium 141 Potassium 4.1 Chloride 108 H Carbon Dioxide 28 Anion Gap 5 L BUN 11.2 Creatinine 0.7 Est GFR (CKD-EPI)AfAm 148.85 Est GFR (CKD-EPI)NonAf 128.43 Random Glucose 79 Calcium 8.7 Phosphorus 3.7 Magnesium 2.3 Total Bilirubin 0.6 AST 652 H ALT 727 H Alkaline Phosphatase 49 C-Reactive Protein < 0.3 Total Protein 6.7 Albumin 3.5 CMV IgG Ab CMV IgM Ab HSV I DNA Quant (PCR) HSV II DNA Quant (PCR) HOSPITAL COURSE: Date of Admission:07/25/19 Date of Discharge: 07/28/19 28 year old male with no reported past medical history presents with complaint of fever and malaise. Had recent flow in from vacationing in [place], 5d prior to admission. Had unremarkable vacation. Swam in ocean, ate raw shrimp. had some sneezing. Had low WBC(0.9) and platelets(56). CT H negative. Admitted for neutropenic fever. LP neg. Labwork for viral w/u is still pending. Received plts x2 for thrombocytopenia. Hematology recommended US inguinal LN but patient refused. Had an increasing transaminitis. RUQ US neg. Cefepime was discontinue d/t concern of possible cause of increased LFTs. Doxycline was then later also dc'd. Pt LFTs increased to 700s and GI was consulted. GI did not think pt had autoimmune hepatitis, possible LFTs were a drug reaction. Patient expressed desire to leave hospital AMA and continue care in at [facility] [place] [place]. Risks explained and return precautions given. Pt signed out AMA Minutes to complete discharge: 36 <Ernesto Galvez - Last Filed: 07/29/19 00:09> Discharge Summary Problems reviewed: Yes Reason For Visit: FEBRILE NEUTROPENIA - Home Medications Comprehensive Discharge Medication List: Ambulatory Orders Amox-Tr/K Cl [Augmentin 875Mg Tablet] 1 tab PO BID #20 tablet 07/20/12 No Home Medications 0 dose .ROUTE UTDICT 07/20/12 <Ernesto Galvez - Last Filed: 07/29/19 00:09> - Home Medications Comprehensive Discharge Medication List: Please note that , the patient was not prescribed any medications upon leaving AMA. The above ambulatory meds were his admission meds. <Yury Rust - Last Filed: 08/05/19 12:24> Condition: Unchanged/Unknown - Instructions Diet, Activity, Other Instructions: You were evaluated for a fever with associated rash, fatigue, malaise. Labwork showed low counts of your white blood cells, platelets; high liver enzyme levels. You were admitted with neutropenic precautions. Viral labwork is still pending the results. Your liver enzymes are still increasing. You decided to leave against medical advice Instructions: - avoid close contact with sick people. Try to wear a respiratory mask if possible - see your PCP as soon as possible for continued bloodwork monitoring Seek immediate medical evaluation if you experience: - severe fatigue, headache, nausea, vomiting, confusion - spontaneous bleeding - yellowing of eyes or skin - severe worsening of your rash - continued fevers Disposition: AGAINST MEDICAL ADVICE This patient is new to me today: No Emergency Visit: No Critical Care patient: No - Discharge Referral Referred to [facility] Med P.C.: No <Ernesto Galvez - Last Filed: 07/29/19 00:09> ATTENDING PHYSICIAN STATEMENT I saw and evaluated the patient. I reviewed the resident's note and discussed the case with the resident. I agree with the resident's findings and plan as documented. SUBJECTIVE: OBJECTIVE: ASSESSMENT AND PLAN: <GalvezJatinder diamondneth - Last Filed: 07/29/19 00:09> ATTENDING PHYSICIAN STATEMENT I saw and evaluated the patient. I reviewed the resident's note and discussed the case with the resident. I agree with the resident's findings and plan as documented. SUBJECTIVE: OBJECTIVE: ASSESSMENT AND PLAN: <RimmakaylaJohnathoncasi - Last Filed: 08/05/19 12:24>
--- NOTE | 2019-07-28 18:57 | CONS ---
DATE OF CONSULTATION: 07/25/2019 HISTORY OF PRESENT ILLNESS: The patient is a 28-year-old man we were asked to see for febrile neutropenia. He lives in [place], [place] with his and 5-month- old child. He is a software deployment engineer. On July 24, 2019, he and his and child went to [place], [place] for a 7-day vacation. They went to the beach; they swam in the pool. They went to the jungle where he says they pretty much just pulled aside at look-outs and looked at things. His food intake was notable for raw shrimp. His family members are not ill. His is sneezing a little bit. His son is fine. He does note that he had sustained bug bites to his legs during the trip. After his return on the , he started having fever. He took Tylenol but he was able to go out with his family, which he continued to do for the next couple of days. He had no vomiting, no diarrhea, no cough. He has been feeling achy. Yesterday, he noted that he had a rash. This morning, he felt lightheaded and came to the ER where he was noted to have a white count of 800, a platelet count of 56,000 and a fever of 101.2. His hospital course in the ER was notable for a chest x-ray that was normal and a spinal tap that revealed two white cells and a normal protein and glucose. He is totally awake and alert. His chemistries are notable for an elevated AST and ALT but no CPK was done. He has received several liters of fluid and reports that he is feeling better. He also received a dose of vancomycin and cefepime this morning. Also on admission, his lactic acid was normal. He denies any joint swelling or sore throat. His recent travel was to [place]. PAST MEDICAL HISTORY: Negative. PAST SURGICAL HISTORY: He has never had any surgery. SOCIAL HISTORY: He lives in [place] with his . He is monogamous with his . They are currently visiting [place] and he is staying at a hotel. He works as a software deployment engineer. He does not smoke. He drinks one or two beers per week. There is no history of any illicit drug use. They do have a pet dog and they have been going to the park with their child in [place]. ALLERGIES: No known drug allergies. HOME MEDICATIONS: He has been taking Tylenol p.r.n. REVIEW OF SYSTEMS: Notable for fevers and chills. He has felt lightheaded. He has had a poor appetite. He has felt achy. There have been no GI symptoms. He has had no pulmonary symptoms. PHYSICAL EXAMINATION: General: Vital Signs: T-max was 101.2; current temperature is 100.8. Pulse 80, blood pressure 108/65, respiratory rate 20, saturating 97% on room air. HEENT: He is normocephalic. His eyes are anicteric. He has mild bilateral conjunctivitis. Neck: Supple. He has no meningeal signs. He has no pharyngitis. Lungs: Clear to auscultation. Heart: Regular rate and rhythm. Abdomen: Soft, nontender. Extremities: No edema. He has a lacy rash over his abdomen, his back and on the palms of his hands. LABORATORY DATA: His CSF fluid gram stain is negative. His white count on repeat was 1.2, hemoglobin 13.9, platelets of 54,000. He has 47% lymphocytes and his ANC is 400. INR is 1.1. BUN and creatinine are 9 and 0.9 with AST of 117, ALT of 125, alkaline phosphatase of 42. Urinalysis shows 1+ ketones, 1+ protein. His HIV was done and is negative at this time. He had an abdominal ultrasound which is pending and a chest x-ray that is negative for infiltrate. In summary, this is a 28-year-old man admitted with fever, rash, leukopenia, thrombocytopenia and abnormal LFTs. Rule out viral infection, EBV, CMV, SecA, Chikungunya, Dengue, Parvo and HIV. Given his travel history, rule out tic illness. Apparently, they have tics in [place] and there has been reported Lyme disease and other tic-related illnesses there. Will cover for febrile neutropenia with vancomycin and cefepime. Will add doxycycline. Continue IV fluids. Will check a CPK given the abnormal LFTs. Check for hepatitis serology. Serologies have been ordered for all of these viral infections. We will follow up his cultures. He needs to be in neutropenic isolation. A hematology consult is pending. An ultrasound is pending as well. Further recommendations will follow. CLAUDIA EPSTEIN M.D. PIA/[id number] MTDD
[2019-08-06 15:06] LABS: MUMPS AB IGG CSF < 5.0 AU/mL (<=10.9)
[2019-08-08 08:06] LABS: ZIKA VIRUS SER. Negative (Negative); ZIKA VIRUS UR. Negative (Negative)
== END 2019-07-28 15:00 | disposition left against medical advice (07) | DRG 810 ==
LOC: JER 05:23 → JERBED 12:58 → J7W 15:28
PROVIDERS: ADMIT Internal Medicine; ATTEND Internal Medicine
PROC: 30233R1 Transfusion of Nonautologous Platelets into Peripheral Vein, Percutaneous Approach (ICD-10-PCS; principal; 2019-07-26)
DX: D70.9 Neutropenia, unspecified (principal); R50.81 Fever presenting with conditions classified elsewhere; D69.6 Thrombocytopenia, unspecified; R74.0 Nonspecific elevation of levels of transaminase and lactic acid dehydrogenase [LDH]; R21 Rash and other nonspecific skin eruption; M79.10 Myalgia, unspecified site; D72.819 Decreased white blood cell count, unspecified
CPT/HCPCS: 36415; 36430; 36511; 70450-TC; 71046-TC-FY; 76700-TC; 80053; 80074; 81003; 82550; 82553; 82803; 82930; 82945; 83010; 83516; 83605; 83615; 83735; 84100; 84157; 84484; 84550; 85025; 85044; 85362; 85384; 85610; 85651; 85730; 86038; 86140; 86308; 86618; 86644; 86645; 86663; 86664; 86665; 86694; 86735; 86765; 86787; 86788; 86789; 86790; 86850; 86900; 86901; 87040; 87070; 87086; 87205; 87207; 87389; 87529; 87798; 87804; 87880; 88300-TC; 93005; 93010; 97116-GP; 97161-GP; 99283-25; J0131; J7030; P9034; P9038